=== PATIENT | female | born 1985 | race Caucasian/White ===

== ENCOUNTER 2017-02-06 07:21 | Emergency (ER) | payer SELFPAY ==
[~2017-02-06] VITALS: Ht 160 cm; Wt 59.0 kg
[~2017-02-06 07:21] MED LIST: CEPH500 PO; NAPR500 PO
[2017-02-06 07:24] VITALS: BP 141/90; PULSE 105; RESP 15; TEMP 98.2; O2SAT 99
[2017-02-06 08:38] LABS: BACTERIA, URINE OCC /hpf; BLOOD, URINE LARGE (NEG); GLUCOSE,URINE NEG (NEG); KETONE, URINE 40 mg/dL (NEG); MUCUS URINE FEW /lpf (OCC); NITRITE,URINE NEG (NEG); SQUAMOUS EPITHELIAL CELL URINE 9 /hpf (0-5); TRANSITIONAL EPI CELLS, URINE <1 /hpf; URINE COLOR YELLOW (YELLW/STRAW)
[2017-02-06 08:40] LABS: COMMENT (UR) CULT NOT INDICATED; CULTURE IF INDICATED CULT NOT INDICATED
[2017-02-06 09:05] VITALS: BP 168/88; PULSE 94; RESP 18; TEMP 98.1; O2SAT 99
[2017-02-06] MEDS ORDERED: SODIUM CHLOR 0.9% 1000 ML INJ 1,000 ML IV ONE (09:15)
[2017-02-06] MEDS ORDERED: ONDANSETRON HCL 4 MG/2 ML VIAL IVP ONE ×2 (09:15→11:45)
[2017-02-06] MEDS ORDERED: KETOROLAC TROMETHAMINE 30 MG/ML (IVP) VIAL IVP ONE (09:15)
--- NOTE | 2017-02-06 09:31 | PD ---
HPI Chief Complaint: Skin Problem Time Seen by Provider: 09:09 Travel History International Travel<30 days: No Contact w/Intl Traveler<30days: No Traveled to known affect area: No History of Present Illness HPI This is a 31-year-old female with history of polycystic ovarian disease, kidney stones, who presents today with complaints of right flank pain with radiation to her right lower quadrant. The patient states the pain feels like it did when she had a previous kidney stone. She states that she's been feeling hot and cold. She also reports severe nausea and vomiting. There is no upper respiratory symptoms. There are no ill contacts. There is no diarrhea. She also has a skin rash to her chin and back. She states that she's had MRSA rashes in the past before. She is concerned this may be MRSA. [facility] Past Medical History Immunizations Current: Yes ?: Not Past Surgical History Gynecologic Surgery: Yes (HYSTERECTOMY) Hysterectomy: Yes Social History Alcohol Use: No Tobacco Use: No Substance Use: No Allergies-Medications (Allergen,Severity, Reaction): Coded Allergies: Amoxicillin (Verified Allergy, Unknown, HIVES, 05/08/15) Haldol (Verified Allergy, Unknown, 02/06/17) Levaquin (Verified Allergy, Unknown, HIVES, 05/08/15) Phenergan (Verified Allergy, Unknown, HIVES, 05/08/15) Reglan (Verified Allergy, Unknown, HIVES, 05/08/15) Robaxin (Verified Allergy, Unknown, HIVES, 05/08/15) Toradol (Verified Allergy, Unknown, 02/06/17) Reported Meds & Prescriptions Reported Meds & Active Scripts Active Lortab (Hydrocodone-Acetaminophen) 5-325 Mg Tab 1 Tab PO Q6H PRN Flomax (Tamsulosin HCl) 0.4 Mg Cap 0.4 Mg PO HS Naprosyn (Naproxen) 500 Mg Tab 500 Mg PO BID PRN Keflex 500 mg Cap (Cephalexin Monohydrate) 500 Mg Cap 500 Mg PO TID 7 Days Review of Systems Except as stated in HPI: all other systems reviewed are Neg General / Constitutional: Positive: Fever, No: Chills (subjective) HENT: No: Headaches, Lightheadedness Cardiovascular: No: Chest Pain or Discomfort, Palpitations Respiratory: No: Cough, Shortness of Breath Gastrointestinal: Positive: Nausea, Vomiting, Abdominal Pain (8 flank to right lower abdominal) Genitourinary: Positive: Dysuria, Hematuria, Other (status post hysterectomy), No: Pelvic Pain, Vaginal Bleeding Musculoskeletal: Positive: Pain (right flank), No: Weakness Neurologic: No: Weakness, Dizziness, Headache Physical Exam Narrative GENERAL: Developed well-nourished female in no acute respiratory distress. SKIN: Focused skin assessment warm/dry. She is warm to touch however temperature is normal. HEAD: Atraumatic. Normocephalic. EYES: No scleral icterus. No injection or drainage. ENT: No nasal bleeding or discharge. Mucous membranes pink and moist. On examination of the patient's chin, there is a erythematous rash with no obvious drainage to her face. It does appear excoriated. NECK: Trachea midline. No JVD. CARDIOVASCULAR: Regular rate and rhythm. No murmur appreciated. RESPIRATORY: No accessory muscle use. Clear to auscultation. Breath sounds equal bilaterally. GASTROINTESTINAL: Abdomen soft, non-tender, nondistended. No rebound or guarding. Patient reports discomfort in her suprapubic area however this was not reproduced on exam. MUSCULOSKELETAL: No obvious deformities. No clubbing. No cyanosis. No edema. NEUROLOGICAL: Awake and alert. No obvious cranial nerve deficits. Motor grossly within normal limits. Normal speech. BACK: Subjective tenderness in the right CVA area. There are several areas on her back that are excoriated that appear red and erythematous. Patient states that she's had MRSA in the past and feels as though this may be this. Data Data Last Documented VS Vital Signs Date Time Temp Pulse Resp B/P Pulse Ox O2 Delivery O2 Flow Rate FiO2 02/06/17 12:19 73 18 136/71 99 Room Air 02/06/17 09:05 98.1 Orders Urinalysis - C+S If Indicated (02/06/17 07:34) Complete Blood Count With Diff (02/06/17 09:10) Comprehensive Metabolic Panel (02/06/17 09:10) Ketorolac Inj (Toradol Inj) (02/06/17 09:15) Ondansetron Inj (Zofran Inj) (02/06/17 09:15) Sodium Chlor 0.9% 1000 Ml Inj (Ns 1000 M (02/06/17 09:15) Ct Abd/Pel W/O Iv Contrast (02/06/17 09:13) Hydromorphone Pf Inj (Dilaudid Pf Inj) (02/06/17 10:00) Lorazepam Inj (Ativan Inj) (02/06/17 10:00) Hydromorphone Pf Inj (Dilaudid Pf Inj) (02/06/17 11:45) Drug Screen, Random Urine (02/06/17 11:44) Ondansetron Inj (Zofran Inj) (02/06/17 11:45) Labs Laboratory Tests Test 02/06/17 02/06/17 02/06/17 07:45 09:45 10:20 Urine Color YELLOW Urine Turbidity HAZY Urine pH 6.0 Urine Specific [place] 1.040 Urine Protein 30 mg/dL Urine Glucose (UA) NEG mg/dL Urine Ketones 40 mg/dL Urine Occult Blood LARGE Urine Nitrite NEG Urine Bilirubin NEG Urine Urobilinogen 2.0 MG/DL Urine Leukocyte Esterase NEG Urine RBC /hpf Urine WBC 1 /hpf Urine Squamous Epithelial 9 /hpf Cells Urine Transitional Epithelial <1 /hpf Cells Urine Bacteria OCC /hpf Urine Mucus FEW /lpf Microscopic Urinalysis Comment CULT NOT INDICATED Urine Opiates Screen POS Urine Barbiturates Screen NEG Urine Amphetamines Screen NEG Urine Benzodiazepines Screen NEG Urine Cocaine Screen NEG Urine Cannabinoids Screen NEG Sodium Level 137 MEQ/L Potassium Level 3.9 MEQ/L Chloride Level 108 MEQ/L Carbon Dioxide Level 18.7 MEQ/L Anion Gap 10 MEQ/L Blood Urea Nitrogen 12 MG/DL Creatinine 0.47 MG/DL Estimat Glomerular Filtration 156 ML/MIN Rate Random Glucose 100 MG/DL Calcium Level 9.2 MG/DL Total Bilirubin 0.5 MG/DL Aspartate Amino Transf 18 U/L (AST/SGOT) Alanine Aminotransferase 17 U/L (ALT/SGPT) Alkaline Phosphatase 62 U/L Total Protein 7.9 GM/DL Albumin 4.1 GM/DL White Blood Count 7.2 TH/MM3 Red Blood Count 4.21 MIL/MM3 Hemoglobin 12.0 GM/DL Hematocrit 33.9 % Mean Corpuscular Volume 80.6 FL Mean Corpuscular Hemoglobin 28.4 PG Mean Corpuscular Hemoglobin 35.2 % Concent Red Cell Distribution Width 15.5 % Platelet Count 297 TH/MM3 Mean Platelet Volume 8.0 FL Neutrophils (%) (Auto) 81.3 % Lymphocytes (%) (Auto) 14.6 % Monocytes (%) (Auto) 3.5 % Eosinophils (%) (Auto) 0.1 % Basophils (%) (Auto) 0.5 % Neutrophils # (Auto) 5.8 TH/MM3 Lymphocytes # (Auto) 1.0 TH/MM3 Monocytes # (Auto) 0.2 TH/MM3 Eosinophils # (Auto) 0.0 TH/MM3 Basophils # (Auto) 0.0 TH/MM3 CBC Comment DIFF FINAL Differential Comment MDM Medical Decision Making Medical Screen Exam Complete: Yes Emergency Medical Condition: Yes Differential Diagnosis Nephritis versus renal calculus versus musculoskeletal pain versus polycystic ovarian exacerbation. Narrative Course 31-year-old female history of polycystic ovarian disease, renal coccus, presents with right flank pain with radiation to her groin. Patient also has hematuria. Urinalysis showed hematuria without infection. White count was normal. The patient does have a 2 mm stone at the right UPJ. The patient's been given 2 doses of IVD narcotics. She was given a dose of Toradol but then said that she can't take Toradol because it makes her anxious. She's been given 2 doses of Zofran. She is also given 1 L of IVD fluid. She'll be discharged with a prescription for Lortab total #15. Also Flomax total number of 10. She is also been given a prescription for Bactrim for her skin lesions as they are possibly MRSA related since she states she's been told in the past and that's what she has. She is instructed to follow up with her primary care doctor, Dr. Garcia if the rash does not improve. Diagnosis Primary Impression: Renal colic on right side Additional Impression: face and skin rash/lesion with history of MRSA skin infection Patient Instructions: Narcotic given in the ED Additional Instructions: If rash on face and back does not improve, follow up with her primary care physician. Return of worsening pain, fevers chills, or any other reason that concerned her. Med/Other Pt SpecificInfo: Prescription(s) given Scripts Ondansetron Odt (Zofran Odt)4 Mg Tab4 Mg SL Q8HR PRN (Nausea/Vomiting) #30 TAB Ref 0 Prov:Lucas Mckeon MD 02/06/17 Sulfamethoxazole-Trimethoprim (Bactrim DS)800-160 Mg Tab1 Tab PO BID #20 TAB Ref 0 Prov:Lucas Mckeon MD 02/06/17 Hydrocodone-Acetaminophen (Lortab)5-325 Mg Tab1 Tab PO Q6H PRN (PAIN) #15 TAB Ref 0 Prov:Lucas Mckeon MD 02/06/17 Tamsulosin (Flomax)0.4 Mg Cap0.4 Mg PO HS #10 CAP Ref 0 Prov:Lucas Mckeon MD 02/06/17 Disposition: 01 DISCHARGE HOME Condition: Stable Lucas Mckeon MD Feb 06, 2017 09:31
[2017-02-06] MEDS ORDERED: HYDROmorphone HCL PF 1 MG/ML VIAL IVS ONE ×2 (10:00→11:45)
[2017-02-06] MEDS ORDERED: LORazepam 2 MG/ML VIAL IV PUSH ONE (10:00)
[2017-02-06 10:05] VITALS: BP 154/79; PULSE 98; RESP 18; O2SAT 100
[2017-02-06 10:50] LABS: ALKALINE PHOSPHATASE 62 U/L (45-117); ALT (GPT) 17 U/L (10-53); ANION GAP 10 MEQ/L (5-15); AST (GOT) 18 U/L (15-37); BICARBONATE 18.7 MEQ/L (21.0-32.0); BLOOD UREA NITROGEN 12 MG/DL (7-18); CHLORIDE 108 MEQ/L (98-107); GLOMERULAR FILTRATION RATE 156 ML/MIN (>89); POTASSIUM 3.9 MEQ/L (3.5-5.1); SODIUM (NA) 137 MEQ/L (136-145); TOTAL BILIRUBIN ADULT 0.5 MG/DL (0.2-1.0)
[2017-02-06 10:51] LABS: AUTOMATED NEUTROPHIL # 5.8 TH/MM3 (1.8-7.7); BASOPHIL % 0.5 % (0.0-2.0); EOSINOPHIL % 0.1 % (0.0-4.0); HEMATOCRIT 33.9 % (35.0-46.0); HEMO FLAGS DIFF FINAL; LYMPH % 14.6 % (9.0-44.0); MEAN CELL VOLUME 80.6 FL (80.0-100.0); MEAN CORPUSCULAR HEMOGLOBIN 28.4 PG (27.0-34.0); MEAN CORPUSCULAR HGB CONC 35.2 % (32.0-36.0); MONO % 3.5 % (0.0-8.0); NEUT % 81.3 % (16.0-70.0); PLATELET COUNT 297 TH/MM3 (150-450); RED BLOOD COUNT 4.21 MIL/MM3 (4.00-5.30); RED CELL DISTRIBUTION WIDTH 15.5 % (11.6-17.2); WHITE BLOOD COUNT 7.2 TH/MM3 (4.0-11.0)
--- NOTE | 2017-02-06 11:27 | RADRPT ---
EXAM DATE/TIME: 02/06/2017 10:36 [place] COMPARISON: No previous studies available for comparison. INDICATIONS : Right flank pain, hematuria for three days. ORAL CONTRAST: No oral contrast ingested. RADIATION DOSE: 13.28 CTDIvol (mGy) MEDICAL HISTORY : Polycystic ovarian disease, endometreosis. SURGICAL HISTORY : Hysterectomy. ENCOUNTER: Initial ACUITY: 3 days PAIN SCALE: 6/10 LOCATION: Right flank TECHNIQUE: Volumetric scanning of the abdomen and pelvis was performed. Using automated exposure control and ad justment of the mA and/or kV according to patient size, radiation dose was kept as low as reasonably achievable to obtain optimal diagnostic quality images. FINDINGS: LOWER LUNGS: The visualized lower lungs are clear. LIVER: Homogeneous density without lesion for noncontrast technique. There is no dilation of the biliary tr ee. In the posterior port from prior cholecystectomy.. SPLEEN: Normal size without lesion. PANCREAS: Within normal limits. KIDNEYS: The kidneys are symmetric in size. No calcified stones on either side. No evidence hydronephrosis i n either side. Both ureters are normal dimension. There is a solitary 2 mm calcification seen near the ureteral vesical junction on the right side, best seen on image #134. ADRENAL GLANDS: Within normal limits. VASCULAR: There is no aortic aneurysm. BOWEL/MESENTERY: The stomach, small bowel, and colon demonstrate no acute abnormality. There is no free intraperitone al air or fluid. ABDOMINAL WALL: Within normal limits. RETROPERITONEUM: There is no lymphadenopathy. BLADDER: No wall thickening or mass. No calcifications within the lumen. REPRODUCTIVE: Within normal limits. INGUINAL: There is no lymphadenopathy or hernia. MUSCULOSKELETAL: Within normal limits for patient age. CONCLUSION: 1. There is a 2 mm calcified stone near the right ureteral vesicle junction in the distal right urete r. 2. No evidence of hydronephrosis on either side and no collecting system calcifications in either kid segre. Lalo English MD on February 06, 2017 at 11:19 Board Certified Radiologist. This report was verified electronically.
[2017-02-06 12:19] VITALS: BP 136/71; PULSE 73; RESP 18; O2SAT 99
[2017-02-06 12:40] LABS: AMPHETAMINE, URINE NEG (NEG); BARBITURATES, URINE NEG (NEG); COCAINE, URINE NEG (NEG)
[2017-02-06] MEDS ORDERED: TAMS5CAP PO (12:55)
[2017-02-06] MEDS ORDERED: HYDR-3533 PO (12:55)
[2017-02-06] MEDS ORDERED: ZOFR4TAB3 SL (13:05)
[2017-02-06] MEDS ORDERED: BACT800T5 PO (13:05)
[2017-02-06] MEDS ORDERED: ONDANSETRON ODT 4 MG TAB PO ONE (13:15)
== END 2017-02-06 13:53 | disposition home or self-care (01) ==
LOC: NEPC 07:21
DX: N23 Unspecified renal colic (principal); R21 Rash and other nonspecific skin eruption; R31.9 Hematuria, unspecified; E28.2 Polycystic ovarian syndrome; Z86.14 Personal history of Methicillin resistant Staphylococcus aureus infection; Z87.442 Personal history of urinary calculi
CPT/HCPCS: 74176; 80053; 80307; 81001; 85025; 96374; 96375; 96376; 99284; J1170; J1885; J2060; J2405; J7030

== ENCOUNTER 2017-02-06 21:52 | Observation (INO) | payer SELFPAY ==
[~2017-02-06] VITALS: Ht 160 cm; Wt 59.0 kg
[~2017-02-06 21:52] MED LIST changes: +BACT800T5 PO; +HYDR-3533 PO; +TAMS5CAP PO; +ZOFR4TAB3 SL
[2017-02-06 21:53] VITALS: BP 166/100; PULSE 112; RESP 12; TEMP 98.1; O2SAT 99
[2017-02-06] MEDS ORDERED: MORPHINE SULFATE 4 MG/ML INJ IV PUSH ONE (23:00)
[2017-02-06] MEDS ORDERED: ONDANSETRON HCL 4 MG/2 ML VIAL IVP ONE (23:00)
[2017-02-06] MEDS ORDERED: SODIUM CHLOR 0.9% 1000 ML INJ 1,000 ML IV SCH (23:00)
[2017-02-06] MEDS ORDERED: SODIUM CHLORIDE 0.9% FLUSH 10 ML FLUSH IV FLUSH PRN (23:00)
--- NOTE | 2017-02-06 23:23 | PD ---
HPI Chief Complaint: Complaint Time Seen by Provider: 22:59 Travel History International Travel<30 days: No Contact w/Intl Traveler<30days: No Traveled to known affect area: No History of Present Illness HPI 31-year-old female who was seen in the emergency department earlier today and diagnosed with a right-sided kidney stone, back for evaluation of intractable pain, nausea, and vomiting. Patient reports severe sharp right flank pain that radiates to her right lower abdomen. She isn't able to keep her medications down. Chart review shows that she had a CT abdomen pelvis performed earlier today that shows a 2 mm calcified stone near the right UVJ in the distal right ureter without evidence of hydronephrosis. UA showed large occult blood, not suggestive of UTI. PFSH Past Medical History Genitourinary: Yes (polycystic disease) Medical other: Yes (kidney stones) Immunizations Current: Yes ?: Not Past Surgical History Gynecologic Surgery: Yes (HYSTERECTOMY) Hysterectomy: Yes Social History Alcohol Use: No Tobacco Use: No Substance Use: No Allergies-Medications (Allergen,Severity, Reaction): Coded Allergies: Amoxicillin (Verified Allergy, Unknown, HIVES, 05/08/15) Haldol (Verified Allergy, Unknown, 02/06/17) Levaquin (Verified Allergy, Unknown, HIVES, 05/08/15) Phenergan (Verified Allergy, Unknown, HIVES, 05/08/15) Reglan (Verified Allergy, Unknown, HIVES, 05/08/15) Robaxin (Verified Allergy, Unknown, HIVES, 05/08/15) Toradol (Verified Allergy, Unknown, 02/06/17) Reported Meds & Prescriptions Reported Meds & Active Scripts Active Zofran Odt (Ondansetron Odt) 4 Mg Tab 4 Mg SL Q8HR PRN Bactrim DS (Sulfamethoxazole-Trimethoprim) 800-160 Mg Tab 1 Tab PO BID Lortab (Hydrocodone-Acetaminophen) 5-325 Mg Tab 1 Tab PO Q6H PRN Flomax (Tamsulosin HCl) 0.4 Mg Cap 0.4 Mg PO HS Review of Systems Except as stated in HPI: all other systems reviewed are Neg Physical Exam Narrative GENERAL: Well-developed, well-nourished, in position, crying, dry heaving into an emesis bag SKIN: Focused skin assessment warm/dry. HEAD: Atraumatic. Normocephalic. EYES: Pupils equal and round. No scleral icterus. No injection or drainage. ENT: Mucous membranes pink and moist. NECK: Trachea midline. No JVD. CARDIOVASCULAR: Regular rate and rhythm. RESPIRATORY: No accessory muscle use. Clear to auscultation. Breath sounds equal bilaterally. GASTROINTESTINAL: Abdomen soft, non-tender, nondistended. MUSCULOSKELETAL: No obvious deformities. No clubbing. No cyanosis. No edema. Moderate right CVA tenderness. No left CVA tenderness. NEUROLOGICAL: Awake and alert. No obvious cranial nerve deficits. Motor grossly within normal limits. Normal speech. PSYCHIATRIC: Appropriate mood and affect; insight and judgment normal. Data Data Last Documented VS Vital Signs Date Time Temp Pulse Resp B/P Pulse Ox O2 Delivery O2 Flow Rate FiO2 02/06/17 23:48 18 98 Room Air 02/06/17 21:53 98.1 112 166/100 Orders Complete Blood Count With Diff (02/06/17 23:00) Comprehensive Metabolic Panel (02/06/17 23:00) Urinalysis - C+S If Indicated (02/06/17 23:00) Iv Access Insert/Monitor (02/06/17 23:00) Ecg Monitoring (02/06/17 23:00) Oximetry (02/06/17 23:00) Morphine Inj (Morphine Inj) (02/06/17 23:00) Ondansetron Inj (Zofran Inj) (02/06/17 23:00) Sodium Chlor 0.9% 1000 Ml Inj (Ns 1000 M (02/06/17 23:00) Sodium Chloride 0.9% Flush (Ns Flush) (02/06/17 23:00) Hydromorphone Pf Inj (Dilaudid Pf Inj) (02/07/17 00:30) Ibuprofen (Motrin) (02/07/17 00:30) Urine Culture (02/07/17 00:11) Ceftriaxone Inj (Rocephin Inj) (02/07/17 00:30) Labs Laboratory Tests Test 02/06/17 02/07/17 23:19 00:11 White Blood Count 11.3 TH/MM3 Red Blood Count 4.41 MIL/MM3 Hemoglobin 12.1 GM/DL Hematocrit 36.0 % Mean Corpuscular Volume 81.6 FL Mean Corpuscular Hemoglobin 27.4 PG Mean Corpuscular Hemoglobin 33.6 % Concent Red Cell Distribution Width 15.6 % Platelet Count 340 TH/MM3 Mean Platelet Volume 7.9 FL Neutrophils (%) (Auto) 78.1 % Lymphocytes (%) (Auto) 15.4 % Monocytes (%) (Auto) 6.0 % Eosinophils (%) (Auto) 0.1 % Basophils (%) (Auto) 0.4 % Neutrophils # (Auto) 8.8 TH/MM3 Lymphocytes # (Auto) 1.7 TH/MM3 Monocytes # (Auto) 0.7 TH/MM3 Eosinophils # (Auto) 0.0 TH/MM3 Basophils # (Auto) 0.0 TH/MM3 CBC Comment DIFF FINAL Differential Comment Sodium Level 137 MEQ/L Potassium Level 4.4 MEQ/L Chloride Level 106 MEQ/L Carbon Dioxide Level 23.7 MEQ/L Anion Gap 7 MEQ/L Blood Urea Nitrogen 11 MG/DL Creatinine 0.66 MG/DL Estimat Glomerular Filtration 105 ML/MIN Rate Random Glucose 94 MG/DL Calcium Level 9.0 MG/DL Total Bilirubin 0.4 MG/DL Aspartate Amino Transf 39 U/L (AST/SGOT) Alanine Aminotransferase 19 U/L (ALT/SGPT) Alkaline Phosphatase 62 U/L Total Protein 8.3 GM/DL Albumin 4.2 GM/DL Urine Color YELLOW Urine Turbidity CLOUDY Urine pH 6.0 Urine Specific [place] 1.020 Urine Protein 30 mg/dL Urine Glucose (UA) NEG mg/dL Urine Ketones NEG mg/dL Urine Occult Blood LARGE Urine Nitrite NEG Urine Bilirubin NEG Urine Urobilinogen LESS THAN 2.0 MG/DL Urine Leukocyte Esterase MOD Urine RBC /hpf Urine WBC 18 /hpf Urine Squamous Epithelial 43 /hpf Cells Urine Bacteria MOD /hpf Urine Mucus MANY /lpf Microscopic Urinalysis Comment CULTURE INDICATED MDM Medical Decision Making Medical Screen Exam Complete: Yes Emergency Medical Condition: Yes Differential Diagnosis Ureterolithiasis, dehydration, intractable pain, intractable nausea and vomiting Narrative Course Vital signs reviewed. Initial tachycardia is because the patient is in distress secondary to pain. CBC shows WBC 11.3, hemoglobin 12.1, hematocrit 36, platelets 340, neutrophils 78%. CMP is unremarkable. UA shows cloudy urine, 30 protein, large occult blood, moderate leukocyte esterase, innumerable rbc's, 18 WBCs, moderate bacteria. The patient will be started on Rocephin. The patient was given a dose of morphine followed by dose of Dilaudid and is still complaining of pain. She was also given oral Motrin. Given intractable right flank pain secondary to kidney stone, the patient will be admitted for overnight observation for pain control. The patient's primary care physician is Dr. Chris Garcia. Case discussed with [facility] hospitalist JOHAN Dupree. The patient will be admitted to their service under Dr. Lopez. Diagnosis Primary Impression: Renal colic on right side Additional Impression: Intractable pain Admitting Information Admitting Physician Requests: Observation Ander Infante MD Feb 06, 2017 23:23
[2017-02-06 23:32] LABS: AUTOMATED NEUTROPHIL # 8.8 TH/MM3 (1.8-7.7); BASOPHIL % 0.4 % (0.0-2.0); EOSINOPHIL % 0.1 % (0.0-4.0); HEMO FLAGS DIFF FINAL; LYMPH % 15.4 % (9.0-44.0); LYMPHOCYTE # 1.7 TH/MM3 (1.0-4.8); MEAN CELL VOLUME 81.6 FL (80.0-100.0); MEAN CORPUSCULAR HEMOGLOBIN 27.4 PG (27.0-34.0); MEAN CORPUSCULAR HGB CONC 33.6 % (32.0-36.0); NEUT % 78.1 % (16.0-70.0); PLATELET COUNT 340 TH/MM3 (150-450); RED BLOOD COUNT 4.41 MIL/MM3 (4.00-5.30); RED CELL DISTRIBUTION WIDTH 15.6 % (11.6-17.2); WHITE BLOOD COUNT 11.3 TH/MM3 (4.0-11.0)
[2017-02-06 23:48] VITALS: RESP 18; O2SAT 98
[2017-02-07] VITALS (7 sets, daily range): BP systolic 132–163; BP diastolic 76–98; PULSE 61–92; RESP 16–20; TEMP 96.6–98; O2SAT 97–100
[2017-02-07 00:12] LABS: ALKALINE PHOSPHATASE 62 U/L (45-117); ALT (GPT) 19 U/L (10-53); ANION GAP 7 MEQ/L (5-15); AST (GOT) 39 U/L (15-37); BICARBONATE 23.7 MEQ/L (21.0-32.0); BLOOD UREA NITROGEN 11 MG/DL (7-18); CHLORIDE 106 MEQ/L (98-107); GLOMERULAR FILTRATION RATE 105 ML/MIN (>89); POTASSIUM 4.4 MEQ/L (3.5-5.1); SODIUM (NA) 137 MEQ/L (136-145); TOTAL BILIRUBIN ADULT 0.4 MG/DL (0.2-1.0)
[2017-02-07 00:23] LABS: BACTERIA, URINE MOD /hpf; BLOOD, URINE LARGE (NEG); COMMENT (UR) CULTURE INDICATED; CULTURE IF INDICATED CULTURE INDICATED; GLUCOSE,URINE NEG (NEG); KETONE, URINE NEG (NEG); MUCUS URINE MANY /lpf (OCC); NITRITE,URINE NEG (NEG); SQUAMOUS EPITHELIAL CELL URINE 43 /hpf (0-5); URINE COLOR YELLOW (YELLW/STRAW)
[2017-02-07] MEDS ORDERED: IBUPROFEN 600 MG TAB PO ONE (00:30)
[2017-02-07] MEDS ORDERED: HYDROmorphone HCL PF 1 MG/ML VIAL IV PUSH ONE (00:30)
[2017-02-07] MEDS ORDERED: cefTRIAXone INJ 1,000 MG in SODIUM CHLORIDE 0.9% INJ 100 ML IV ONE (00:30)
[2017-02-07] MEDS ORDERED: SODIUM CHLORIDE 0.9% FLUSH 10 ML FLUSH IV FLUSH PRN (02:15)
[2017-02-07] MEDS ORDERED: SENNOSIDES 8.6 MG TAB PO PRN (02:15)
[2017-02-07] MEDS ORDERED: NALOXONE HCL 0.4 MG/ML AMP IV PRN (02:15)
[2017-02-07] MEDS ORDERED: ACETAMINOPHEN 325 MG TAB PO PRN (02:15)
[2017-02-07] MEDS ORDERED: MORPHINE SULFATE 4 MG/ML INJ IV PRN (02:15)
[2017-02-07] MEDS: SODIUM CHLOR 0.9% 1000 ML INJ 1,000 ML IV SCH ×3 (03:15→20:57)
[2017-02-07] MEDS: MORPHINE SULFATE 4 MG/ML INJ IV PRN ×2 (03:16→05:58)
[2017-02-07] MEDS: ONDANSETRON HCL 4 MG/2 ML VIAL IVP PRN ×3 (05:58→18:48)
--- NOTE | 2017-02-07 07:26 | HHI.HP ---
HPI Service [facility] Hospitalists Primary Care Physician Chris Garcia MD Admission Diagnosis renal colic, intractable right flank pain Diagnoses: Chief Complaint: Right flank pain (Leandra Franklin) Travel History International Travel<30 Days: No Contact w/Intl Traveler <30 Da: No Traveled to Known Affected Are: No (Leandra Franklin) History of Present Illness This is a 31-year-old female with history of polycystic ovarian syndrome, kidney stones. Patient presented to the emergency room with right-sided flank pain associated with nausea vomiting. Has not been able to eat anything for the last 2 days. Complaining of pelvic pressure, no dye Patel, no hematuria. Has had chills but no fevers. She actually presented to the emergency room yesterday morning and had a CT that showed 2 mm calcified stone near the right ureterovesical junction in the distal right ureter, no evidence of hydronephrosis on either side and no collecting system calcifications in either kidney. She also complained of a rash to her face and her back and buttock, states that she has prior history of MRSA infections. She was discharged home on Bactrim, Flomax and narcotics. Patient returned later in the day yesterday as she couldn't keep anything down and her medications were not controlling her pain. Urinalysis was completed, positive for bacteriuria and leukocyte esterase. Patient was given IV fluids, Dilaudid and Rocephin. At this time, patient is crying, indicates the morphine is not helping and is requesting Dilaudid. She endorses prior history of kidney [place], was supposed to follow-up with the urologist but never did. The last time she had kidney stones was 3 years ago and at that time she was able to pass it. Patient is admitted for further evaluation and treatment. (eLandra Franklin) Review of Systems Constitutional: COMPLAINS OF: Chills, Change in appetite, DENIES: Diaphoretic episodes, Fatigue, Fever, Weight gain, Weight loss, Dizziness, Night Sweats Endocrine: DENIES: Abnorml menstrual pattern, Heat/cold intolerance, Polydipsia , Polyuria, Polyphagia Eyes: DENIES: Blurred vision, Diplopia, Eye inflammation, Eye pain, Vision loss , Photosensitivity, Double Vision Ears, nose, mouth, throat: DENIES: Tinnitus, Hearing loss, Vertigo, Nasal discharge, Oral lesions, Throat pain, Hoarseness, Ear Pain, Running Nose, Epistaxis, Sinus Pain, Toothache, Odynophagia Respiratory: DENIES: Apneas, Cough, Snoring, Wheezing, Hemoptysis, Sputum production, Shortness of breath Cardiovascular: DENIES: Chest pain, Palpitations, Syncope, Dyspnea on Exertion , PND, Lower Extremity Edema, Orthopnea, Claudication Gastrointestinal: COMPLAINS OF: Abdominal pain (right flank pain), Nausea, Vomiting, DENIES: Black stools, Bloody stools, Constipation, Diarrhea, Difficulty Swallowing, Anorexia Genitourinary: DENIES: Abnormal vaginal bleeding, Dysmenorrhea, Dyspareunia, Sexual dysfunction, Urinary frequency, Urinary incontinence, Urgency, Hematuria , Dysuria, Nocturia, Vaginal discharge Musculoskeletal: DENIES: Joint pain, Muscle aches, Stiffness, Joint Swelling, Back pain, Neck pain Integumentary: DENIES: Abnormal pigmentation, Pruritus, Rash, Nail changes, Breast masses, Breast skin changes, Nipple discharge Hematologic/lymphatic: DENIES: Bruising, Lymphadenopathy Immunologic/allergic: DENIES: Eczema, Urticaria Neurologic: DENIES: Abnormal gait, Headache, Localized weakness, Paresthesias, Seizures, Speech Problems, Tremor, Poor Balance Psychiatric: DENIES: Anxiety, Confusion, Mood changes, Depression, Hallucinations, Agitation, Suicidal Ideation, Homicidal Ideation, Delusions ( Leandra Franklin) Past Family Social History Past Medical History Polycystic kidney disease Kidney stones Endometriosis Hx MRSA skin infections Past Surgical History Cholecystectomy Several gynecological procedures for endometriosis Hysterectomy Reported Medications Reported Meds & Active Scripts Active Zofran Odt (Ondansetron Odt) 4 Mg Tab 4 Mg SL Q8HR PRN Bactrim DS (Sulfamethoxazole-Trimethoprim) 800-160 Mg Tab 1 Tab PO BID Lortab (Hydrocodone-Acetaminophen) 5-325 Mg Tab 1 Tab PO Q6H PRN Flomax (Tamsulosin HCl) 0.4 Mg Cap 0.4 Mg PO HS (Leandra Franklin) Allergies: Coded Allergies: Amoxicillin (Verified Allergy, Unknown, HIVES, 05/08/15) Haldol (Verified Allergy, Unknown, 02/06/17) Levaquin (Verified Allergy, Unknown, HIVES, 7/6/15) Phenergan (Verified Allergy, Unknown, HIVES, 05/08/15) Reglan (Verified Allergy, Unknown, HIVES, 05/08/15) Robaxin (Verified Allergy, Unknown, HIVES, 05/08/15) Toradol (Verified Allergy, Unknown, 02/06/17) Active Ordered Medications Inpatient Medications Acetaminophen (Tylenol) 650 mg Q4H PRN PO TEMP > 100.4; Start 02/07/17 at 02:15 Ceftriaxone Sodium 1000 mg/ Sodium Chloride 100 ml @ 200 mls/hr ONCE ONCE IV Last administered on 02/07/17 00:44; Start 02/07/17 at 00:30; Stop 02/07/17 at 00: 59; Status DC Ceftriaxone Sodium/Sodium Chloride (Rocephin Inj/NS Inj) 100 ml @ 200 mls/hr Q24H IV ; Start 02/07/17 at 23:00; Status UNV Hydromorphone HCl (Dilaudid Pf Inj) 1 mg ONCE ONCE IV PUSH Last administered on 02/07/17 00:44; Start 02/07/17 at 00:30; Stop 02/07/17 at 00:31; Status DC Ibuprofen 600 mg 600 mg ONCE ONCE PO ; Start 02/07/17 at 00:30; Stop 02/07/17 at 00:31; Status DC Morphine Sulfate (Morphine Inj) 4 mg Q3H PRN IV Pain 6-10;if unable to take PO Last administered on 02/07/17 05:58; Start 02/07/17 at 02:15 Naloxone HCl 0.4 mg 0.4 mg UNSCH PRN IV SEE LABEL COMMENTS; Start 02/07/17 at 02 :15 Ondansetron HCl (Zofran Inj) 4 mg Q6H PRN IVP NAUSEA OR VOMITING Last administered on 02/07/17 05:58; Start 02/07/17 at 02:15 Sennosides (Senokot) 17.2 mg Q12H PRN PO FLUSH AFTER USING IV ACCESS; Start 02/07/17 at 02:15 Sodium Chloride (NS 1000 ml Inj) 1,000 ml @ 100 mls/hr Q10H IV Last administered on 02/07/17 03:15; Start 02/07/17 at 02:11 Sodium Chloride (NS Flush) 2 ml BID IV FLUSH ; Start 02/07/17 at 09:00 Family History Positive for coronary artery disease, diabetes, lupus. Both mother and father alive and well. She has 2 siblings. Social History Patient is , has 1 child. No smoking, no tobacco abuse, no substance abuse. (Leandra Franklin) Physical Exam Vital Signs Vital Signs Date Time Temp Pulse Resp B/P Pulse Ox O2 Delivery O2 Flow Rate FiO2 02/07/17 04:06 70 18 132/79 97 Room Air 02/07/17 03:30 17 02/07/17 01:19 92 16 151/90 97 Room Air 02/07/17 01:19 17 02/07/17 00:47 89 18 151/93 98 Room Air 02/06/17 23:50 17 02/06/17 23:48 18 98 Room Air 02/06/17 21:53 98.1 112 12 166/100 99 Room Air Physical Exam GENERAL: This is a well-nourished, well-developed patient, crying, anxious. SKIN: on patient's chin, there is a erythematous rash with no obvious drainage. Another 2 cm lesion noted to back and buttocks. HEAD: Atraumatic. Normocephalic. No temporal or scalp tenderness. EYES: Pupils equal round and reactive. Extraocular motions intact. No scleral icterus. No injection or drainage. ENT: Nose without bleeding, purulent drainage or septal hematoma. Throat without erythema, tonsillar hypertrophy or exudate. Uvula midline. Airway patent. NECK: Trachea midline. No JVD or lymphadenopathy. Supple, nontender, no meningeal signs. CARDIOVASCULAR: Regular rate and rhythm without murmurs, gallops, or rubs. RESPIRATORY: Clear to auscultation. Breath sounds equal bilaterally. No wheezes , rales, or rhonchi. GASTROINTESTINAL: Right flank pain, soft, non-tender, nondistended. No hepato- splenomegaly, or palpable masses. No guarding. MUSCULOSKELETAL: Extremities without clubbing, cyanosis, or edema. No joint tenderness, effusion, or edema noted. No calf tenderness. Negative Homans sign bilaterally. NEUROLOGICAL: Awake and alert. Cranial nerves II through XII intact. Motor and sensory grossly within normal limits. Five out of 5 muscle strength in all muscle groups. Normal speech. Laboratory Laboratory Tests Test 02/06/17 02/07/17 23:19 00:11 White Blood Count 11.3 Red Blood Count 4.41 Hemoglobin 12.1 Hematocrit 36.0 Mean Corpuscular Volume 81.6 Mean Corpuscular Hemoglobin 27.4 Mean Corpuscular Hemoglobin 33.6 Concent Red Cell Distribution Width 15.6 Platelet Count 340 Mean Platelet Volume 7.9 Neutrophils (%) (Auto) 78.1 Lymphocytes (%) (Auto) 15.4 Monocytes (%) (Auto) 6.0 Eosinophils (%) (Auto) 0.1 Basophils (%) (Auto) 0.4 Neutrophils # (Auto) 8.8 Lymphocytes # (Auto) 1.7 Monocytes # (Auto) 0.7 Eosinophils # (Auto) 0.0 Basophils # (Auto) 0.0 CBC Comment DIFF FINAL Differential Comment Sodium Level 137 Potassium Level 4.4 Chloride Level 106 Carbon Dioxide Level 23.7 Anion Gap 7 Blood Urea Nitrogen 11 Creatinine 0.66 Estimat Glomerular Filtration 105 Rate Random Glucose 94 Calcium Level 9.0 Total Bilirubin 0.4 Aspartate Amino Transf 39 (AST/SGOT) Alanine Aminotransferase 19 (ALT/SGPT) Alkaline Phosphatase 62 Total Protein 8.3 Albumin 4.2 Urine Color YELLOW Urine Turbidity CLOUDY Urine pH 6.0 Urine Specific [place] 1.020 Urine Protein 30 Urine Glucose (UA) NEG Urine Ketones NEG Urine Occult Blood LARGE Urine Nitrite NEG Urine Bilirubin NEG Urine Urobilinogen LESS THAN 2.0 Urine Leukocyte Esterase MOD Urine RBC Urine WBC 18 Urine Squamous Epithelial 43 Cells Urine Bacteria MOD Urine Mucus MANY Microscopic Urinalysis Comment CULTURE INDICATED Date/Time Procedure Status Source Growth 02/07/17 00:11 Urine Culture Received Urine Random Urine Pending (Leandra Franklin) Result Diagram: 02/06/17 0456 02/06/17 9820 Assessment and Plan Problem List: (1) Intractable pain (2) Renal colic on right side (3) UTI (urinary tract infection) (4) Polycystic disease, ovaries (5) Facial rash (6) Hx MRSA infection Assessment and Plan Admit to Dr. Lopez 31-year-old female with history of kidney stones, polycystic ovarian syndrome. Presented to the emergency room with recurrent right-sided flank pain, nausea, vomiting,. Complaining also pelvic pressure,or any. Evaluated in the emergency room had CT that showed 2 mm calcified stone near the UVJ in the distal right ureter, without evidence of hydronephrosis. Urinalysis positive for UTI Continue with IV fluids Consul urology for evaluation Keep nothing by mouth Discontinue morphine and start Dilaudid 1 mg IV push every 3 when necessary for pain scale 7-10 Patient indicates she is allergic to Toradol has hives. -We'll have nursing strain urine -continue antibiotics -Continue Flomax Facial and back lesions, prior history of MRSA -Continue with IV antibiotics for now SCDs for DVT prophylaxis Home medications reviewed, initiated as indicated Plan of care discussed with the patient, attending and registered nurse. Further management of the patient will be dependent on the hospital course This patient was seen by myself and Dr. Lopez, this H&P is written on her behalf (Leandra Franklin) Assessment and Plan patient seen and examined agree with above assessment and plan continue i/v fluids, pain control start sips of clears once nausea improves discussed with patient discussed with Leandra TAN (Dayanara Lopez MD) Problem Qualifiers (1) UTI (urinary tract infection): Leandra Franklin Feb 07, 2017 07:26 Dayanara Lopez MD Feb 07, 2017 09:25
[2017-02-07] MEDS: SODIUM CHLORIDE 0.9% FLUSH 10 ML FLUSH IV FLUSH SCH ×2 (08:34→20:56)
[2017-02-07] MEDS: HYDROmorphone HCL PF 1 MG/ML VIAL IV PRN ×5 (08:36→20:57)
--- NOTE | 2017-02-07 10:31 | PD.CONS ---
HPI Service Urology Consult Requested By Reason for Consult Right ureteral calculus Primary Care Physician hCris Garcia MD Diagnosis: History of Present Illness 31 year-old female with history of recurrent nephrolithiasis who is now admitted for acute onset right flank pain radiating to the right lower quadrant. Workup included a CT scan of the abdomen and pelvis that demonstrated a 2 mm right ureterovesical junction calculus without any significant hydroureteronephrosis. Patient admitted for analgesic support and I V hydration. Upon further questioning the patient has had at least 3 prior kidney stones which she has passed on her own. Stones typically take 1-2 days for passage. She reports that she has been dehydrated lately. She reports that her father has a history of kidney stones as well. At the time of consultation the patient was resting comfortably and in no acute distress. Review of Systems Constitutional: DENIES: Fever, Night Sweats Gastrointestinal: COMPLAINS OF: Abdominal pain (right lower quadrant), Nausea, Vomiting Genitourinary: DENIES: Hematuria Musculoskeletal: COMPLAINS OF: Back pain (right flank) Except as stated in HPI: all other systems reviewed are Neg Past Family Social History Past Medical History Recurrent nephrolithiasis Endometriosis Past Surgical History Status post cholecystectomy Status post section Status post hysterectomy Reported Medications Refer to EMR Allergies: Coded Allergies: Amoxicillin (Verified Allergy, Unknown, HIVES, 05/08/15) Haldol (Verified Allergy, Unknown, 02/06/17) Levaquin (Verified Allergy, Unknown, HIVES, 05/08/15) Phenergan (Verified Allergy, Unknown, HIVES, 05/08/15) Reglan (Verified Allergy, Unknown, HIVES, 05/08/15) Robaxin (Verified Allergy, Unknown, HIVES, 05/08/15) Toradol (Verified Allergy, Unknown, 02/06/17) Active Ordered Medications Refer to EMR Family History Father with history nephrolithiasis Coronary artery disease Diabetes mellitus Systemic lupus erythematosus Social History Denies tobacco, alcohol or intravenous drug abuse Physical Exam Vital Signs Date Time Temp Pulse Resp B/P Pulse Ox O2 Delivery O2 Flow Rate FiO2 02/07/17 09:06 16 02/07/17 08:00 96.9 72 20 146/84 98 02/07/17 04:06 70 18 132/79 97 Room Air 02/07/17 03:30 17 02/07/17 01:19 92 16 151/90 97 Room Air 02/07/17 01:19 17 02/07/17 00:47 89 18 151/93 98 Room Air 02/06/17 23:50 17 02/06/17 23:48 18 98 Room Air 02/06/17 21:53 98.1 112 12 166/100 99 Room Air Physical Exam GENERAL: This is a well-nourished, well-developed patient, in no apparent distress. SKIN: No rashes, ecchymoses or lesions. Cool and dry. HEAD: Atraumatic. Normocephalic. No temporal or scalp tenderness. EYES: Pupils equal round and reactive. Extraocular motions intact. No scleral icterus. No injection or drainage. ENT: Nose without bleeding, purulent drainage or septal hematoma. Throat without erythema, tonsillar hypertrophy or exudate. Uvula midline. Airway patent. NECK: Trachea midline. No JVD or lymphadenopathy. Supple, nontender, no meningeal signs. CARDIOVASCULAR: Regular rate and rhythm without murmurs, gallops, or rubs. RESPIRATORY: Clear to auscultation. Breath sounds equal bilaterally. No wheezes , rales, or rhonchi. GASTROINTESTINAL: Abdomen soft, non-tender, nondistended. No hepato-splenomegaly , or palpable masses. No guarding. GENITOURINARY: No CVA tenderness MUSCULOSKELETAL: Extremities without clubbing, cyanosis, or edema. No joint tenderness, effusion, or edema noted. No calf tenderness. Negative Homans sign bilaterally. NEUROLOGICAL: Awake and alert. Cranial nerves II through XII intact. Motor and sensory grossly within normal limits. Five out of 5 muscle strength in all muscle groups. Normal speech. Laboratory Tests Test 02/06/17 02/07/17 23:19 00:11 White Blood Count 11.3 Red Blood Count 4.41 Hemoglobin 12.1 Hematocrit 36.0 Mean Corpuscular Volume 81.6 Mean Corpuscular Hemoglobin 27.4 Mean Corpuscular Hemoglobin 33.6 Concent Red Cell Distribution Width 15.6 Platelet Count 340 Mean Platelet Volume 7.9 Neutrophils (%) (Auto) 78.1 Lymphocytes (%) (Auto) 15.4 Monocytes (%) (Auto) 6.0 Eosinophils (%) (Auto) 0.1 Basophils (%) (Auto) 0.4 Neutrophils # (Auto) 8.8 Lymphocytes # (Auto) 1.7 Monocytes # (Auto) 0.7 Eosinophils # (Auto) 0.0 Basophils # (Auto) 0.0 CBC Comment DIFF FINAL Differential Comment Sodium Level 137 Potassium Level 4.4 Chloride Level 106 Carbon Dioxide Level 23.7 Anion Gap 7 Blood Urea Nitrogen 11 Creatinine 0.66 Estimat Glomerular Filtration 105 Rate Random Glucose 94 Calcium Level 9.0 Total Bilirubin 0.4 Aspartate Amino Transf 39 (AST/SGOT) Alanine Aminotransferase 19 (ALT/SGPT) Alkaline Phosphatase 62 Total Protein 8.3 Albumin 4.2 Urine Color YELLOW Urine Turbidity CLOUDY Urine pH 6.0 Urine Specific [place] 1.020 Urine Protein 30 Urine Glucose (UA) NEG Urine Ketones NEG Urine Occult Blood LARGE Urine Nitrite NEG Urine Bilirubin NEG Urine Urobilinogen LESS THAN 2.0 Urine Leukocyte Esterase MOD Urine RBC Urine WBC 18 Urine Squamous Epithelial 43 Cells Urine Bacteria MOD Urine Mucus MANY Microscopic Urinalysis Comment CULTURE INDICATED Date/Time Procedure Status Source Growth 02/07/17 00:11 Urine Culture Received Urine Random Urine Pending Result Diagram: 02/06/17 2319 02/06/17 2315 Personally reviewed images: Yes Imaging CT scan of the abdomen and pelvis demonstrated a 2 mm right ureterovesical junction calculus without any evidence of hydroureteronephrosis. No renal calculi were seen. Assessment and Plan Assessment and Plan Urologic impression: 2 mm right ureterovesical junction calculus that is likely to spontaneously pass. Recommendations: #1 continue with Flomax and straining of urine until stone retrieved #2 continue with I V hydration and analgesic support #3 discharge home when pain managed with oral meds #4 office follow up next week [phone] Louie Lind MD Feb 07, 2017 10:31
--- NOTE | 2017-02-07 17:35 | HHI.DCPOC ---
Discharge Care Plan Diagnosis: (1) UTI (urinary tract infection) (2) Renal colic on right side (3) Intractable pain (4) Polycystic disease, ovaries (5) Facial rash (6) Hx MRSA infection Your Health Problems Are: Anxiety Appetite Changes Inflammation Goals to Promote Your Health * To prevent worsening of your condition and complications * To maintain your health at the optimal level Directions to Meet Your Goals Take your medications as prescribed Follow your dietary instruction Follow activity as directed Keep your appointments as scheduled Take your immunizations and boosters as scheduled If your symptoms worsen call your PCP, if no PCP go to Urgent Care Center or Emergency Room Smoking is Dangerous to Your Health. Avoid second hand smoke Call the 24-hour hour crisis hotline for domestic abuse at Leandra Franklin [facility] Feb 07, 2017 17:35
[2017-02-07] MEDS: ALPRAZolam 0.25 MG TAB PO PRN ×2 (17:48→23:50)
[2017-02-07] MEDS: TAMSULOSIN HCL 0.4 MG CAP PO SCH (20:56)
[2017-02-07] MEDS: cefTRIAXone INJ 1,000 MG in SODIUM CHLORIDE 0.9% INJ 100 ML IV SCH (22:58)
[2017-02-08] MEDS: HYDROmorphone HCL PF 1 MG/ML VIAL IV PRN ×6 (00:14→23:32)
[2017-02-08 00:50] VITALS: BP 124/81; PULSE 54; RESP 20; TEMP 98.3; O2SAT 97
[2017-02-08 05:44] LABS: BASOPHIL % 0.6 % (0.0-2.0); EOSINOPHIL # 0.1 TH/MM3 (0-0.4); EOSINOPHIL % 1.9 % (0.0-4.0); HEMATOCRIT 33.4 % (35.0-46.0); HEMO FLAGS DIFF FINAL; LYMPH % 36.8 % (9.0-44.0); MEAN CELL VOLUME 81.8 FL (80.0-100.0); MEAN CORPUSCULAR HEMOGLOBIN 27.4 PG (27.0-34.0); MEAN CORPUSCULAR HGB CONC 33.6 % (32.0-36.0); MONO % 7.3 % (0.0-8.0); NEUT % 53.4 % (16.0-70.0); PLATELET COUNT 269 TH/MM3 (150-450); RED BLOOD COUNT 4.08 MIL/MM3 (4.00-5.30); RED CELL DISTRIBUTION WIDTH 15.3 % (11.6-17.2); WHITE BLOOD COUNT 5.5 TH/MM3 (4.0-11.0)
[2017-02-08 06:21] LABS: BICARBONATE 22.9 MEQ/L (21.0-32.0)
[2017-02-08] MEDS: ONDANSETRON HCL 4 MG/2 ML VIAL IVP PRN ×3 (07:38→19:48)
[2017-02-08] MEDS: ALPRAZolam 0.25 MG TAB PO PRN ×3 (07:38→19:38)
--- NOTE | 2017-02-08 07:47 | HHI.PR ---
Subjective Remarks still nausea and vomiting alert resting on lt. side, pain and nausea control sipping clear liquids sparingly afebrile (Sobia Contreras) Objective Objective Results - Vital Signs Date Time Temp Pulse Resp B/P Pulse Ox O2 Delivery O2 Flow Rate FiO2 02/08/17 00:50 98.3 54 20 124/81 97 02/07/17 19:09 98.0 65 20 163/98 100 02/07/17 18:19 18 02/07/17 16:03 97.8 61 18 140/76 100 02/07/17 12:00 96.6 75 20 146/87 99 02/07/17 08:00 96.9 72 20 146/84 98 (Sobia Contreras) Result Diagram: 02/08/1741902/08/17419 ROS General: Weakness, Other (10 point ROS done, positives noted, other systems negative) GI: N/V /POPPED CORN OVEN ATTENDANT: Dysuria (Sobia Contreras) Physical Exam Physical Exam PHYSICAL EXAMINATION GENERAL: This is a well-developed, well-nourished female who appears to be in no mild distress. She is alert and awake HEAD: Normocephalic Facial features appear symmetric. OROPHARYNGEAL: Oropharynx without erythema or edema.,dry NECK: Supple. No nuchal rigidity or lymphadenopathy. Trachea midline without deviation. CARDIAC: Regular rhythm, regular rate, S1 and S2 are heard. LUNGS: Clear to auscultation bilaterally. no wheezes ABDOMEN: Soft, rt. flank pain radiating from back, Bowel sounds are heard in all four quadrants. No rebound. mild guarding. EXTREMITIES: no edema. Pulses equal bilateral. NEUROLOGICAL: Patient mood and affect appropriate, mild anxiety. No focal deficit SKIN:Warm and moist Objective Remarks Im still having nausea and vomiting (Sobia Contreras) A/P Assessment and Plan (1) Intractable pain (2) Renal colic on right side (3) UTI (urinary tract infection) (4) Polycystic disease, ovaries (5) Facial rash (6) Hx MRSA infection UTI, labs reviewed , leukocytosis resolved, antibiotics continue Hypokalemia Continue with IV fluids, Add K+, recheck BMP am urology consult appreciated still having nausea and vomiting Pain and nausea management Facial and back lesions, prior history of MRSA -Continue with IV antibiotics for now SCDs for DVT prophylaxi Further management of the patient will be dependent on the hospital course D/W nurse D/W patient D/W Dr. Lopez, seen on her behalf Discharge Planning home when stable (Sobia Contreras) Assessment and Plan patient seen and examined per nursing staff patient not vomiting , just spitting change to prn phenergan change dilaudid to q6h prn add po percocet prn pain advance diet labs in am discussed with patient discussed with nursing staff discussed with Sobia TAN (Dayanara Lopez MD) Sobia Contreras Feb 08, 2017 07:47 Dayanara Lopez MD Feb 08, 2017 10:57
[2017-02-08] MEDS ORDERED: POTASSIUM CHLORIDE 20 MEQ CONTROLLED RELEASE TAB PO ONE (08:00)
[2017-02-08] MEDS: 1/2 NS + KCL 20 MEQ INJ 1,000 ML IV SCH ×2 (08:05→19:32)
[2017-02-08] MEDS: SODIUM CHLORIDE 0.9% FLUSH 10 ML FLUSH IV FLUSH SCH ×2 (08:13→19:32)
[2017-02-08 09:04] VITALS: BP 142/64; PULSE 52; RESP 18; TEMP 98; O2SAT 96
[2017-02-08] MEDS ORDERED: PROMETHAZINE HCL 25 MG TAB PO PRN (11:00)
[2017-02-08] MEDS ORDERED: oxyCODONE/ACETAMINOPHEN 5 MG/325 MG TAB PO PRN (11:00)
[2017-02-08 11:55] VITALS: BP 130/73; PULSE 63; RESP 18; O2SAT 95
[2017-02-08] MEDS ORDERED: HYDROmorphone HCL PF 1 MG/ML VIAL IV PRN (15:00)
[2017-02-08 18:01] VITALS: BP 155/82; PULSE 54; RESP 18; TEMP 97.6; O2SAT 95
[2017-02-08] MEDS: TAMSULOSIN HCL 0.4 MG CAP PO SCH (19:39)
[2017-02-08 20:24] VITALS: BP 159/85; PULSE 61; RESP 18; TEMP 97.6; O2SAT 100
[2017-02-08] MEDS: diphenhydrAMINE HCL 50 MG/ML VIAL IV PRN (21:04)
[2017-02-08] MEDS: cefTRIAXone INJ 1,000 MG in SODIUM CHLORIDE 0.9% INJ 100 ML IV SCH (23:18)
[2017-02-08 23:54] VITALS: BP 149/78; PULSE 76; RESP 19; TEMP 98; O2SAT 96
[2017-02-09] MEDS: ALPRAZolam 0.25 MG TAB PO PRN ×3 (03:34→17:31)
[2017-02-09] MEDS: HYDROmorphone HCL PF 1 MG/ML VIAL IV PRN ×5 (03:35→20:33)
[2017-02-09] MEDS: 1/2 NS + KCL 20 MEQ INJ 1,000 ML IV SCH ×2 (04:00→09:33)
[2017-02-09 04:35] VITALS: BP 142/88; PULSE 54; RESP 20; TEMP 97.8; O2SAT 96
[2017-02-09 07:04] LABS: POTASSIUM 3.2 MEQ/L (3.5-5.1)
[2017-02-09 07:28] LABS: AUTOMATED NEUTROPHIL # 4.5 TH/MM3 (1.8-7.7); BASOPHIL % 0.5 % (0.0-2.0); EOSINOPHIL # 0.1 TH/MM3 (0-0.4); EOSINOPHIL % 1.4 % (0.0-4.0); HEMATOCRIT 33.6 % (35.0-46.0); HEMO FLAGS DIFF FINAL; LYMPHOCYTE # 1.5 TH/MM3 (1.0-4.8); MEAN CELL VOLUME 81.2 FL (80.0-100.0); MEAN CORPUSCULAR HEMOGLOBIN 27.5 PG (27.0-34.0); MEAN CORPUSCULAR HGB CONC 33.8 % (32.0-36.0); MONO % 5.8 % (0.0-8.0); NEUT % 69.3 % (16.0-70.0); PLATELET COUNT 273 TH/MM3 (150-450); RED BLOOD COUNT 4.14 MIL/MM3 (4.00-5.30); WHITE BLOOD COUNT 6.5 TH/MM3 (4.0-11.0)
[2017-02-09] MEDS: SODIUM CHLORIDE 0.9% FLUSH 10 ML FLUSH IV FLUSH SCH ×2 (08:08→20:34)
[2017-02-09] MEDS: diphenhydrAMINE HCL 50 MG/ML VIAL IV PRN ×3 (08:13→20:34)
--- NOTE | 2017-02-09 08:34 | HHI.PR ---
Subjective Remarks still nausea and vomiting, pills taken seen in emesis alert diarrhea, with blood? pain and nausea control abd/back pain continues afebrile (Sobia Contreras) Objective Objective Results - Vital Signs Date Time Temp Pulse Resp B/P Pulse Ox O2 Delivery O2 Flow Rate FiO2 02/09/17 04:35 97.8 54 20 142/88 96 02/09/17 04:32 18 02/08/17 23:54 98.0 76 19 149/78 96 02/08/17 20:24 97.6 61 18 159/85 100 02/08/17 18:01 97.6 54 18 155/82 95 02/08/17 13:48 20 02/08/17 11:55 63 18 130/73 95 02/08/17 10:51 18 02/08/17 09:04 98.0 52 18 142/64 96 (Sobia Contreras) Result Diagram: 02/09/17 0440 02/09/17 0440 ROS General: Weakness (acute generalized), Other (10 point ROS done positives noted are weakness, nausea vomiting, diarrhea, other systems negative or unremarkable, she is anxious) GI: Diarrhea, N/V Neuro/MS: Other (Clarence) (Sobia Contreras) Physical Exam Physical Exam PHYSICAL EXAMINATION GENERAL: This is a well-developed, well-nourished female Still having pain nausea vomiting and now diarrhea She is alert and awake, HEAD: Normocephalic without any lesion or mass noted. Facial features appear symmetric. OROPHARYNGEAL: Oropharynx without erythema or edema. NECK: Supple. No nuchal rigidity or lymphadenopathy. Trachea midline without deviation. CARDIAC: Regular rhythm, regular rate, S1 and S2 are heard. Murmur none no gallops or rubs. LUNGS: Clear to auscultation bilaterally. ABDOMEN: Soft, no guarding, pain radiates around from the back. Bowel sounds are heard in all four quadrants. No guarding. EXTREMITIES: [] edema. Pulses equal bilateral. [] cyanosis. NEUROLOGICAL: Patient mood and affect appropriate. No focal deficit SKIN:Warm and moist Objective Remarks I still feel really bad (Sobia Contreras) A/P Assessment and Plan (1) Intractable pain (2) Renal colic on right side (3) UTI (urinary tract infection) (4) Polycystic disease, ovaries (5) Facial rash (6) Hx MRSA infection UTI, labs reviewed , leukocytosis resolved, antibiotics continue Hypokalemia, unable to take by mouth meds for now, continue IV Continue with IV fluids, Add K+, urology consult appreciated still having nausea and vomiting , now states diarrhea, patient states with some blood, will do stool sample for occult blood Pain and nausea management Will recheck BMP in the morning We'll continue with Flomax and straining of the urine. Urology feels stone should pass on its own. Facial and back lesions, prior history of MRSA -Continue with IV antibiotics for now SCDs for DVT prophylaxi Further management of the patient will be dependent on the hospital course D/W nurse D/W patient D/W Dr. Lopez, seen on her behalf Discharge Planning home when stable (Sobia Contreras) Assessment and Plan patient seen and examined still c/o pain current dose not holding persistant n/v repeat CT Abd/pelvis increase dilaudid to 1 mg check stool for occult blood labs in am discussed with patient discussed with nursing staff discussed with Sobia TAN (Dayanara Lopez MD) Sobia Contreras Feb 09, 2017 08:34 Dayanara Lopez MD Feb 09, 2017 12:20
[2017-02-09 08:42] VITALS: BP 151/84; PULSE 58; RESP 18; TEMP 97.9; O2SAT 95
[2017-02-09 08:43] VITALS: BP 153/90; PULSE 65; RESP 18; TEMP 96.8; O2SAT 96
[2017-02-09] MEDS: ONDANSETRON HCL 4 MG/2 ML VIAL IVP PRN ×3 (09:28→23:20)
[2017-02-09 11:51] VITALS: BP 164/97; PULSE 63; RESP 18; O2SAT 96
--- NOTE | 2017-02-09 13:47 | HHI.PR ---
Subjective Patient symptoms today Patient continues to have significant right flank pain requiring intravenous Dilaudid. Denies passing the stone as of yet. Objective Vital Signs Vital Signs Date Time Temp Pulse Resp B/P Pulse Ox O2 Delivery O2 Flow Rate FiO2 02/09/17 11:51 63 18 164/97 96 02/09/17 08:43 96.8 65 18 153/90 96 02/09/17 08:42 97.9 58 18 151/84 95 02/09/17 04:35 97.8 54 20 142/88 96 02/09/17 04:32 18 02/08/17 23:54 98.0 76 19 149/78 96 02/08/17 20:24 97.6 61 18 159/85 100 02/08/17 18:01 97.6 54 18 155/82 95 02/08/17 13:48 20 Result Diagram: 02/09/1743902/09/17439 Objective Remarks Abdomen soft, nondistended, nontender No CVA tenderness Extremities well-perfused Medications and IVs Current Medications Medications (Trade) Dose Ordered Sig/Dena Route Start Time Stop Time Status Last Admin (NS Flush) 2 ml UNSCH PRN IV FLUSH 02/07/17 02:15 (NS Flush) 2 ml BID IV FLUSH 02/07/17 09:00 02/09/17 08:08 (Tylenol) 650 mg Q4H PRN PO 02/07/17 02:15 (Zofran Inj) 4 mg Q6H PRN IVP 02/07/17 02:15 02/09/17 09:28 (Senokot) 17.2 mg Q12H PRN PO 02/07/17 02:15 Naloxone HCl 0.4 mg 0.4 mg UNSCH PRN IV 02/07/17 02:15 (Rocephin Inj/NS Inj) 100 ml @ 200 mls/hr Q24H IV 02/07/17 23:00 02/08/17 23:18 (Flomax) 0.4 mg HS PO 02/07/17 21:00 02/08/17 19:39 Alprazolam 0.25 mg 0.25 mg Q6H PRN PO 02/07/17 18:00 02/09/17 10:02 (1/2 NS + KCl 20 Meq Inj) 1,000 ml @ 100 mls/hr Q10H IV 02/08/17 08:00 02/09/17 09:33 (Benadryl Inj) 25 mg QID PRN IV 02/08/17 21:00 02/09/17 08:13 (Dilaudid Pf Inj) 0.8 mg Q4H PRN IV 02/09/17 14:30 Assessment and Plan Assessment and Plan Urologic impression: 2 mm right ureterovesical junction calculus refractory to conservative management Recommendations: #1 continue with Flomax and straining of urine until stone retrieved #2 continue with I V hydration and analgesic support #3 will placed the patient on the OR schedule for tomorrow for cystoscopy, right retrograde pyelogram and right ureteroscopy with stone extraction #4 risks and benefits discussed with patient Louie Lind MD Feb 09, 2017 13:47
--- NOTE | 2017-02-09 14:06 | RADRPT ---
EXAM DATE/TIME: 02/09/2017 13:11 [facility] COMPARISON: CT ABDOMEN & PELVIS W/O CONTRAST, February 06, 2017, 10:36. INDICATIONS : Right abdominal pain radiaitng to left quadrant with rectal bleeding. ORAL CONTRAST: No oral contrast ingested. RADIATION DOSE: 4.76 CTDIvol (mGy) MEDICAL HISTORY : None SURGICAL HISTORY : Hysterectomy. Cholecystectomy. ENCOUNTER: Initial ACUITY: 3 days PAIN SCALE: 5/10 LOCATION: Bilateral abdomen/pelvis TECHNIQUE: Volumetric scanning of the abdomen and pelvis was performed. Using automated exposure control and adjustment of the mA and/or kV according to patient size, radiation dose was kept as low as reasonably achievable to obtain optimal diagnostic quality images. FINDINGS: LOWER LUNGS: The visualized lower lungs are clear. LIVER: Homogeneous density without lesion. There is no dilation of the biliary tree. No calcifi ed gallstones. SPLEEN: Normal size without lesion. PANCREAS: Within normal limits. KIDNEYS: Normal in size and shape. There is no mass, stone, or hydronephrosis. There is mild pro minence of the right ureter. The previously noted distal right ureteral stone is no longer visualized . ADRENAL GLANDS: Within normal limits. VASCULAR: There is no aortic aneurysm. BOWEL/MESENTERY: The stomach, small bowel, and colon demonstrate no acute abnormality. There is no free intraperitoneal air or fluid. The lack of IV or oral contrast limits further evaluation of th e bowel. ABDOMINAL WALL: Within normal limits. RETROPERITONEUM: There is no lymphadenopathy. BLADDER: No wall thickening or mass. REPRODUCTIVE: Within normal limits. INGUINAL: There is no lymphadenopathy or hernia. MUSCULOSKELETAL: Within normal limits for patient age. CONCLUSION: The previously noted distal right ureteral stone is no longer visualized. Given the p atient's clinical indication of rectal bleeding recommend further outpatient evaluation with colonosc opy.. Jacey Leach MD on February 09, 2017 at 14:00 Board Certified Radiologist. This report was verified electronically.
[2017-02-09] MEDS: POTASSIUM CHLOR 20 MEQ PREMIX 100 ML IV SCH ×2 (16:57→19:43)
[2017-02-09 19:39] VITALS: BP 165/94; PULSE 80; RESP 18; TEMP 98.2; O2SAT 93
[2017-02-09] MEDS: TAMSULOSIN HCL 0.4 MG CAP PO SCH (20:34)
[2017-02-09] MEDS ORDERED: AMBI10TA PO (22:25)
[2017-02-09] MEDS: cefTRIAXone INJ 1,000 MG in SODIUM CHLORIDE 0.9% INJ 100 ML IV SCH (23:19)
[2017-02-09] MEDS: ZOLPIDEM TARTRATE 10 MG TAB PO PRN (23:20)
[2017-02-09 23:48] VITALS: BP 156/85; PULSE 70; RESP 20; TEMP 98.3; O2SAT 97
[2017-02-10] MEDS: HYDROmorphone HCL PF 1 MG/ML VIAL IV PRN ×5 (00:40→21:23)
[2017-02-10] MEDS: ALPRAZolam 0.25 MG TAB PO PRN ×3 (00:40→21:22)
[2017-02-10 04:33] VITALS: BP 152/79; PULSE 72; RESP 18; TEMP 97.6; O2SAT 97
[2017-02-10 04:38] LABS: AUTOMATED NEUTROPHIL # 4.7 TH/MM3 (1.8-7.7); BASOPHIL # 0.1 TH/MM3 (0-0.2); BASOPHIL % 0.8 % (0.0-2.0); EOSINOPHIL # 0.1 TH/MM3 (0-0.4); EOSINOPHIL % 1.4 % (0.0-4.0); HEMATOCRIT 33.6 % (35.0-46.0); HEMO FLAGS DIFF FINAL; LYMPH % 31.9 % (9.0-44.0); LYMPHOCYTE # 2.5 TH/MM3 (1.0-4.8); MEAN CELL VOLUME 80.1 FL (80.0-100.0); MEAN CORPUSCULAR HEMOGLOBIN 28.3 PG (27.0-34.0); MEAN CORPUSCULAR HGB CONC 35.3 % (32.0-36.0); MONO % 6.4 % (0.0-8.0); NEUT % 59.5 % (16.0-70.0); PLATELET COUNT 314 TH/MM3 (150-450); RED BLOOD COUNT 4.19 MIL/MM3 (4.00-5.30); RED CELL DISTRIBUTION WIDTH 15.5 % (11.6-17.2); WHITE BLOOD COUNT 7.9 TH/MM3 (4.0-11.0)
[2017-02-10] MEDS: 1/2 NS + KCL 20 MEQ INJ 1,000 ML IV SCH ×4 (04:41→21:21)
[2017-02-10] MEDS: diphenhydrAMINE HCL 50 MG/ML VIAL IV PRN ×2 (04:42→21:23)
[2017-02-10 04:55] LABS: BICARBONATE 23.7 MEQ/L (21.0-32.0); POTASSIUM 3.6 MEQ/L (3.5-5.1)
[2017-02-10 07:53] VITALS: BP 144/68; PULSE 55; RESP 20; TEMP 97.9; O2SAT 96
--- NOTE | 2017-02-10 08:14 | HHI.PR ---
Subjective Remarks still nausea and vomiting rt. flank pain alert diarrhea, with blood noted again, never had before afebrile NPO (Sobia Contreras) Objective Objective Results - Vital Signs Date Time Temp Pulse Resp B/P Pulse Ox O2 Delivery O2 Flow Rate FiO2 02/10/17 07:53 97.9 55 20 144/68 96 02/10/17 05:20 18 02/10/17 04:33 97.6 72 18 152/79 97 02/09/17 23:48 98.3 70 20 156/85 97 02/09/17 19:39 98.2 80 18 165/94 93 02/09/17 11:51 63 18 164/97 96 02/09/17 08:43 96.8 65 18 153/90 96 02/09/17 08:42 97.9 58 18 151/84 95 I/O 02/09/17 02/09/17 02/09/17 02/10/17 02/10/17 02/10/17 07:00 15:00 23:00 07:00 15:00 23:00 Output Total 500 ml 300 ml Balance -500 ml -300 ml Output Urine Total 500 ml 300 ml # Voids 3 (Sobia Contreras) Result Diagram: 02/10/1742302/10/17423 ROS General: Fatigue, Weakness, Other (10 point ROS done, positives noted, other systems unremarkable) GI: Diarrhea (hemoccult positive) /FORESTRY BIOLOGY SPECIALIST: Other (rt. flank pain) (Sobia Contreras) Physical Exam Physical Exam PHYSICAL EXAMINATION GENERAL: This is a well-developed, well-nourished female who appears to be in mild distress She is awake HEAD: Normocephalic without any lesion or mass noted. Facial features appear symmetric. OROPHARYNGEAL: Oropharynx without erythema or edema. NECK: Supple. No nuchal rigidity or lymphadenopathy. Trachea midline without deviation. CARDIAC: Regular rhythm, regular rate, S1 and S2 are heard. Murmur none; no gallops or rubs. LUNGS: Clear to auscultation bilaterally. ABDOMEN: Soft, rt. fland tenderness, no organomegaly or masses. Bowel sounds are heard in all four quadrants. EXTREMITIES: no edema. Pulses equal bilateral. NEUROLOGICAL: Cooperative. No focal deficit SKIN:Warm and moist Objective Remarks I'm still hurting in my right side. I feel the stone is still there somewhere ( Sobia Contreras) A/P Assessment and Plan (1) Intractable pain (2) Renal colic on right side (3) UTI (urinary tract infection) (4) Polycystic disease, ovaries (5) Facial rash (6) Hx MRSA infection UTI, labs reviewed , leukocytosis resolved, antibiotics continue Hypokalemia, resolved, Continue with IV fluids, Add K+, urology consult appreciated, plan is for cystoscopy today. She is now nothing by mouth CT scan done yesterday without visual of the stone anymore but patient's symptoms still persist of sharp right flank pain and nausea and vomiting Pain and nausea management We'll continue with Flomax and straining of the urine. Facial and back lesions, prior history of MRSA -Continue with IV antibiotics for now, medical management SCDs for DVT prophylaxi Further management of the patient will be dependent on the hospital course Diarrhea Hemoccult positive, at some point will need GI follow-up possibly as an outpatient, D/W nurse D/W patient D/W Dr. Lopez, seen on her behalf Discharge Planning home when stable (Sobia Contreras) Assessment and Plan patient seen and examined still complaining of pain plan for cystoscopy today discussed with patient discussed with nursing staff discussed with Sobia TAN (Dayanara Lopez MD) Sobia Contreras Feb 10, 2017 08:14 Dayanara Lopez MD Feb 10, 2017 09:39
[2017-02-10] MEDS: SODIUM CHLORIDE 0.9% FLUSH 10 ML FLUSH IV FLUSH SCH ×2 (08:52→21:00)
[2017-02-10] MEDS: ONDANSETRON HCL 4 MG/2 ML VIAL IVP PRN (09:00)
[2017-02-10 11:46] VITALS: BP 149/86; PULSE 84; RESP 20; TEMP 98; O2SAT 97
[2017-02-10] MEDS ORDERED: PROPOFOL 200 MG/20 ML AMP IV ONE (12:41)
[2017-02-10] MEDS ORDERED: ONDANSETRON HCL 4 MG/2 ML VIAL IV PUSH ONE (12:42)
[2017-02-10] MEDS ORDERED: NORMOSOL R INJ 1,000 ML IV ONE (12:43)
[2017-02-10] MEDS ORDERED: ACETAMINOPHEN 1000 MG/100 ML VIAL IV ONE (13:00)
[2017-02-10] MEDS ORDERED: FAMOTIDINE 20 MG/2 ML VIAL ONE (13:00)
[2017-02-10] MEDS ORDERED: MIDAZOLAM HCL 2 MG/2 ML VIAL ONE (13:00)
[2017-02-10] MEDS ORDERED: DEXAMETHASONE SOD PHOS 4 MG/ML VIAL ONE (13:01)
[2017-02-10] MEDS ORDERED: fentaNYL CITRATE 250 MCG/5 ML AMP ONE (14:22)
[2017-02-10] MEDS ORDERED: IOHEXOL 350 MG/ML 10 ML VIAL (for RAD DIAG) ONE (14:49)
--- NOTE | 2017-02-10 15:27 | PD.OP ---
Operative Report Date of Surgery: Feb 10, 2017 Preoperative Diagnosis: (1) Ureteral calculus, right Postoperative Diagnosis: (1) Renal colic on right side (Passed ureteral calculus) Procedure: Cystoscopy and right retrograde pyelogram Anesthesia: General Surgeon: Louie Lind Receptionist Telephone Operator(s): None Operation and Findings: Indication for procedure: 31-year-old female with right flank pain worked up with CT scan that demonstrated a 2 mm right distal ureteral stone. Symptoms persisted despite conservative management and presents now for further urologic evaluation to include cystoscopy and right retrograde pyelogram. Operative procedure in detail: Patient was brought to the operating room suite and placed supine on the cystoscopy table. She was then placed under general anesthesia. She was then repositioned in the dorsolithotomy position and prepped and draped in normal sterile fashion. After appropriate timeout was undertaken a proceeded with cystoscopic evaluation utilizing the rigid cystoscope with the 20 Wolof sheath and 30 lens. Both right and left ureteral orifices were in correct anatomic position effluxing clear yellow urine. There were no bladder mucosal lesions, calculi or diverticula formation. Next a 6 Wolof open-ended ureteral catheter was utilized and a right retrograde study was performed. There was prompt filling and drainage of the collecting system without evidence of filling defects or obstruction. The bladder was drained. Fluid and cystoscope was withdrawn. The patient tolerated the procedure without complications and transferred to the PACU in satisfactory condition. Louie Lind MD Feb 10, 2017 15:27
[2017-02-10] MEDS ORDERED: *diphenhydrAMINE HCL 50 MG/ML VIAL PERIprocedural Use ONLY ONE (15:50)
[2017-02-10] MEDS ORDERED: *ENALAPRILAT 1.25 MG/ML VIAL PERIprocedural Use ONLY ONE (16:09)
[2017-02-10] MEDS ORDERED: *morphine SULFATE 8 MG/ML PERIprocedure ONLY ONE ×3 (16:10→19:20)
[2017-02-10] MEDS ORDERED: *ONDANSETRON 4 MG VIAL PERIprocedural Use ONLY ONE (19:19)
[2017-02-10 21:10] VITALS: BP 169/90; PULSE 82; RESP 18; TEMP 97.2; O2SAT 96
[2017-02-10] MEDS: TAMSULOSIN HCL 0.4 MG CAP PO SCH (21:22)
[2017-02-10] MEDS: ZOLPIDEM TARTRATE 10 MG TAB PO PRN (21:22)
[2017-02-10 21:44] VITALS: O2SAT 95
[2017-02-10] MEDS: cefTRIAXone INJ 1,000 MG in SODIUM CHLORIDE 0.9% INJ 100 ML IV SCH (22:50)
[2017-02-11] VITALS: BP 153/86; PULSE 98; RESP 18; TEMP 97.9; O2SAT 100
[2017-02-11] MEDS: HYDROmorphone HCL PF 1 MG/ML VIAL IV PRN ×3 (01:14→09:26)
[2017-02-11] MEDS: ONDANSETRON HCL 4 MG/2 ML VIAL IVP PRN (01:14)
[2017-02-11] MEDS: diphenhydrAMINE HCL 50 MG/ML VIAL IV PRN ×2 (03:13→09:20)
[2017-02-11] MEDS: ALPRAZolam 0.25 MG TAB PO PRN ×2 (03:13→09:20)
[2017-02-11 04:00] VITALS: BP 136/79; PULSE 75; RESP 18; TEMP 96.4; O2SAT 98
[2017-02-11 08:00] VITALS: BP 158/80; PULSE 65; RESP 16; TEMP 96.6; O2SAT 96
[2017-02-11] MEDS: SODIUM CHLORIDE 0.9% FLUSH 10 ML FLUSH IV FLUSH SCH (09:00)
--- NOTE | 2017-02-11 11:36 | HHI.PR ---
Subjective Remarks Generalized soreness but nausea and vomiting resolved Patient is tolerating 100% of her food and by mouth liquids Status post cystoscopy, no stone found Afebrile Objective Objective Results - Vital Signs Date Time Temp Pulse Resp B/P Pulse Ox O2 Delivery O2 Flow Rate FiO2 02/11/17 08:00 96.6 65 16 158/80 96 02/11/17 04:00 96.4 75 18 136/79 98 02/11/17 01:44 18 02/11/17 00:00 97.9 98 18 153/86 100 02/10/17 21:44 95 21 02/10/17 21:10 97.2 82 18 169/90 96 02/10/17 20:00 97.6 65 16 138/85 98 Room Air 02/10/17 19:25 15 02/10/17 19:00 66 16 139/86 98 Room Air 02/10/17 18:00 67 16 140/87 97 Room Air 02/10/17 17:53 16 02/10/17 17:00 66 15 141/88 97 Room Air 02/10/17 16:45 64 15 145/89 96 Room Air 02/10/17 16:30 63 15 159/96 95 Room Air 02/10/17 16:15 65 15 168/98 95 Room Air 02/10/17 16:15 15 02/10/17 16:00 69 15 172/105 95 Room Air 02/10/17 15:45 77 16 172/99 98 Nasal Cannula 2 02/10/17 15:40 97.1 80 16 175/115 100 Nasal Cannula 3 02/10/17 11:46 98.0 84 20 149/86 97 I/O 02/10/17 02/10/17 02/10/17 02/11/17 02/11/17 02/11/17 07:00 15:00 23:00 07:00 15:00 23:00 Intake Total 2160 ml 1508 ml Output Total 300 ml 660 ml 400 ml Balance -300 ml 1500 ml 1108 ml Intake Oral 560 ml 480 ml IV Total 300 ml 1028 ml Other 1300 ml Output Urine Total 300 ml 650 ml 400 ml Estimated Blood Loss 10 ml # Voids 1 1 # Bowel Movements 0 0 Result Diagram: 02/10/17 0424 02/10/17 0424 ROS General: Other (mild soreness, ) Physical Exam Physical Exam PHYSICAL EXAMINATION GENERAL: This is a well-developed, well-nourished female who appears to be in no acute distress. She is alert HEAD: Normocephalic without any lesion or mass noted. Facial features appear symmetric. OROPHARYNGEAL: Oropharynx without erythema or edema. NECK: Supple. No nuchal rigidity or lymphadenopathy. Trachea midline without deviation. CARDIAC: Regular rhythm, regular rate, S1 and S2 heard LUNGS: Clear to auscultation bilaterally ABDOMEN: Soft, nontender, no organomegaly or masses. Bowel sounds are heard in all four quadrants. No rebound. No guarding. EXTREMITIES: No edema. Pulses equal bilateral. NEUROLOGICAL: Patient mood and affect appropriate. No focal deficit SKIN:Warm and moist Objective Remarks I'm ready to go home today that I'm still a little sore A/P Assessment and Plan (1) Intractable pain (2) Renal colic on right side (3) UTI (urinary tract infection) (4) Polycystic disease, ovaries (5) Facial rash (6) Hx MRSA infection UTI, stable with her antibiotics Hypokalemia, resolved, IV fluids DC'd, Hypokalemia resolved, K level 3.6 urology consult appreciated, cystoscope done, normal. No stones seen, patient passed at some point in time Pain and nausea management, continues to request medication, although she states she feels much better Hx Facial and back lesions, prior history of MRSA Stable SCDs for DVT prophylaxi Patient assessed and reviewed should be stable for discharge today. D/W nurse D/W patient D/W Dr. Lopez, seen on her behalf Discharge Planning home Sobia Contreras Feb 11, 2017 11:35 Discharge Planning home when stable Sobia Contreras Feb 11, 2017 11:35
[2017-02-11 12:00] VITALS: BP 151/82; PULSE 74; RESP 16; TEMP 97.3; O2SAT 98
[2017-02-11] MEDS ORDERED: ZOFR4TAB3 SL (12:02)
[2017-02-11] MEDS ORDERED: HYDR-3533 PO (12:02)
--- NOTE | 2017-02-11 16:44 | HHI.DS ---
Discharge Summary Admission Date Feb 07, 2017 at 00:33 Discharge Date: Feb 11, 2017 Admitting Diagnosis renal colic, intractable right flank pain (1) Intractable pain Diagnosis: Secondary (2) Renal colic on right side Diagnosis: Principal (3) UTI (urinary tract infection) Diagnosis: Principal (4) Polycystic disease, ovaries Diagnosis: Secondary (5) Facial rash Diagnosis: Secondary (6) Hx MRSA infection Diagnosis: Secondary Procedures cystoscopy Brief History This was a 31-year-old female with history of polycystic ovarian syndrome, kidney stones. Patient presented to the emergency room with right-sided flank pain associated with nausea vomiting. Has not been able to eat anything for the last 2 days. Complaining of pelvic pressure, no dysuria, no hematuria. She had chills but no fevers. She actually presented to the emergency room yesterday morning and had a CT that showed 2 mm calcified stone near the right ureterovesical junction in the distal right ureter, no evidence of hydronephrosis on either side and no collecting system calcifications in either kidney. She also complained of a rash to her face and her back and buttock, states that she has prior history of MRSA infections. She was discharged home on Bactrim, Flomax and narcotics. Patient returned later in the day yesterday as she couldn't keep anything down and her medications were not controlling her pain. Urinalysis was completed, positive for bacteriuria and leukocyte esterase. Patient was given IV fluids, Dilaudid and Rocephin. At this time, patient is crying, indicates the morphine is not helping and is requesting Dilaudid. She endorsed prior history of kidney [place], was supposed to follow-up with the urologist but never did. The last time she had kidney stones was 3 years ago and at that time she was able to pass it. Patient was admitted for further evaluation and treatment. CBC/BMP: 02/10/17 0424 02/10/17 0424 Significant Findings Laboratory Tests Test 02/09/17 02/10/17 04:40 04:24 Hemoglobin 11.4 GM/DL (11.6-15.3) Hematocrit 33.6 % 33.6 % (35.0-46.0) (35.0-46.0) Potassium Level 3.2 MEQ/L (3.5-5.1) Chloride Level 109 MEQ/L 108 MEQ/L (98-107) (98-107) Blood Urea Nitrogen 2 MG/DL (7-18) 2 MG/DL (7-18) Creatinine 0.45 MG/DL 0.49 MG/DL (0.50-1.00) (0.50-1.00) Calcium Level 8.4 MG/DL (8.5-10.1) Imaging Last Impressions Abdomen/Pelvis CT 02/09/17 0000 Signed Impressions: Service Date/Time: Thursday, February 09, 2017 13:11 - CONCLUSION: The previously noted distal right ureteral stone is no longer visualized. Given the patient's clinical indication of rectal bleeding recommend further outpatient evaluation with colonoscopy.. Jacey Leach MD PE at Discharge GENERAL: This was a well-developed, well-nourished female who appears to be in no distress She is awake HEAD: Normocephalic without any lesion or mass noted. Facial features appear symmetric. OROPHARYNGEAL: Oropharynx without erythema or edema. NECK: Supple. No nuchal rigidity or lymphadenopathy. Trachea midline without deviation. CARDIAC: Regular rhythm, regular rate, S1 and S2 are heard. Murmur none; no gallops or rubs. LUNGS: Clear to auscultation bilaterally. ABDOMEN: Soft, rt. fland tenderness, no organomegaly or masses. Bowel sounds are heard in all four quadrants. EXTREMITIES: no edema. Pulses equal bilateral. NEUROLOGICAL: Cooperative. No focal deficit SKIN:Warm and moist (1 Hospital Course These are the diagnoses that were used to treat this patient during this hospital stay. 1) Intractable pain (2) Renal colic on right side (3) UTI (urinary tract infection) (4) Polycystic disease, ovaries (5) Facial rash (6) Hx MRSA infection Vital signs were monitored every 4 hours and documented. Intake and output were maintained to monitor acute nausea and vomiting and to prevent dehydration. UTI was found, labs reviewed , leukocytosis resolved, antibiotics continue throughout hospital stay Hypokalemia, initially noted on admission from her labs patient received potassium in her IV fluids first 48 hours as well as IV bolus supplement . resolved 24 hours before discharge urology consult appreciated, plan is for cystoscopy since patient did not respond to initial treatment plan. Initially patient was nothing by mouth, had nausea vomiting and some diarrhea. Not sure that diarrhea was related to acute renal stone, need follow-up as an outpatient with GI if this continues. CT scan done yesterday without visual of the stone anymore but patient's symptoms still persist of sharp right flank pain and nausea and vomiting. Cystoscope was already set up to be done. Pain and nausea management We'll continue with Flomax and straining of the urine. Cystoscopy was completed. It was no stone found, patient was thought to left past the stone before CT scan done Facial and back lesions, prior history of MRSA -Continue with IV antibiotics for now, medical management She was maintained on contact isolation during this hospital stay due to history of MRSA. History of facial rash, possibly related to febrile illness. Dissipated within 24 hours of admission. SCDs for DVT prophylaxi Further management of the patient will be dependent on the hospital course. Patient received IV pain medicine and IV nausea medicines and by mouth meds to stabilize her during her renal stone discomfort. D/W nurse D/W patient D/W Dr. Lopez, seen on her behalf Pt Condition on Discharge: Stable Discharge Disposition: Discharge Home Discharge Instructions DIET: Follow Instructions for: Heart Healthy Diet Activities you can perform: Regular-No Restrictions Sobia Contreras Feb 11, 2017 16:44
== END 2017-02-11 13:08 | disposition home or self-care (01) ==
LOC: NEPD 21:52 → NEDA 02-07 00:33 → NEPFCDU 02-07 06:59 → N07B 02-10 13:30
PROVIDERS: ADMIT Internal Medicine; ATTEND Internal Medicine
DX: N20.2 Calculus of kidney with calculus of ureter (principal); E28.2 Polycystic ovarian syndrome; Z87.442 Personal history of urinary calculi; R68.83 Chills (without fever); Z86.14 Personal history of Methicillin resistant Staphylococcus aureus infection; R21 Rash and other nonspecific skin eruption; R82.71 Bacteriuria; N80.9 Endometriosis, unspecified; N39.0 Urinary tract infection, site not specified
CPT/HCPCS: 00910; 52005; 74176; 74420; 80048; 80053; 81001; 82272; 85025; 87086; 87641; 96361; 96374; 96375; 99284; C1769; G0378; J0131; J0696; J1100; J1170; J1200; J2250; J2270; J2405; J3010; J3480; J7030; Q9967; 76937

== ENCOUNTER 2017-02-19 13:56 | Emergency (ER) | payer SELFPAY ==
[~2017-02-19] VITALS: Ht 160 cm; Wt 59.0 kg
[~2017-02-19 13:56] MED LIST changes: +AMBI10TA PO; -BACT800T5 PO; -CEPH500 PO; -NAPR500 PO; -TAMS5CAP PO
[2017-02-19 13:58] VITALS: BP 122/79; PULSE 97; RESP 16; TEMP 98.2; O2SAT 96
--- NOTE | 2017-02-19 14:43 | PD ---
Physical Exam Date Seen by Provider: Feb 19, 2017 Time Seen by Provider: 14:40 Narrative Pt is a 31 year old female presenting to the ED for evaluation of skin infection to her chin since last night. Pt reports feeling bad, chilled. Pt has been taking Tylenol and ibuprofen with no relief. No dental pain. Lesion to chin has been draining clear yellow drainage. Hx of MRSA. VSS, awaiting bed placement. Data Data Last Documented VS Vital Signs Date Time Temp Pulse Resp B/P Pulse Ox O2 Delivery O2 Flow Rate FiO2 02/19/17 13:58 98.2 97 16 122/79 96 Room Air MDM Supervised Visit with LEOPOLDO: Katherine Garcia Feb 19, 2017 14:43
--- NOTE | 2017-02-19 15:08 | PD ---
HPI . right chin infection Chief Complaint: Facial Pain or Swelling Time Seen by Provider: 15:08 Travel History International Travel<30 days: No Contact w/Intl Traveler<30days: No Traveled to known affect area: No History of Present Illness HPI 31 year-old female with history of MRSA here with complaints of right chin drainage and lesion that popped up last night. Patient says she does not recall any type of trauma or insect bite. She says all of a sudden she noticed this area on her face that was red and irritated. It also has some clear drainage. She decided to come in for evaluation as she has had MRSA in the past. She denies any fever or chills. Her primary care provider is Dr. Garcia. She has no other complaints. PFSH Past Medical History Asthma: No Blood Disorders: No Heart Rhythm Problems: No Cancer: No Cardiovascular Problems: No High Cholesterol: No Chemotherapy: No Chest Pain: No Congestive Heart Failure: No COPD: No Diabetes: No Endocrine: No Genitourinary: No Musculoskeletal: No Neurologic: No Psychiatric: No Reproductive: No Respiratory: No Immunizations Current: Yes Sleep Apnea: No Past Surgical History Gynecologic Surgery: Yes (HYSTERECTOMY) Hysterectomy: Yes ( 4 YEARS AGO) Social History Alcohol Use: No Tobacco Use: No Substance Use: No Allergies-Medications (Allergen,Severity, Reaction): Coded Allergies: Penicillin (Verified Allergy, Severe, Hives, 02/19/17) Amoxicillin (Verified Allergy, Unknown, HIVES, 02/19/17) Haldol (Verified Allergy, Unknown, 02/19/17) Levaquin (Verified Allergy, Unknown, HIVES, 02/19/17) Phenergan (Verified Allergy, Unknown, HIVES, 02/19/17) Reglan (Verified Allergy, Unknown, HIVES, 02/19/17) Robaxin (Verified Allergy, Unknown, HIVES, 02/19/17) Toradol (Verified Allergy, Unknown, 02/19/17) *MDRO Multi-Drug Resistant Organism (Verified Adverse Reaction, Unknown, MRSA, 02/19/17) MRSA PCR (nares) POSITIVE - 02/10/17 Reported Meds & Prescriptions Reported Meds & Active Scripts Active Bactrim DS (Sulfamethoxazole-Trimethoprim) 800-160 Mg Tab 1 Tab PO BID Reported Ambien (Zolpidem Tartrate) 10 Mg Tab 10 Mg PO HS PRN Review of Systems General / Constitutional: No: Fever Eyes: No: Visual changes HENT: No: Headaches Cardiovascular: No: Chest Pain or Discomfort Respiratory: No: Shortness of Breath Gastrointestinal: No: Abdominal Pain Genitourinary: No: Dysuria Musculoskeletal: No: Pain Skin: Positive Lesions (right side of chin ), No Rash Neurologic: No: Weakness Psychiatric: No: Depression Endocrine: No: Polydipsia Hematologic/Lymphatic: No: Easy Bruising Physical Exam Narrative GENERAL: AAO x 3, no acute distress, Well-nourished, well-developed patient. SKIN: Warm and dry. No visible rashes or bruising. Right side of chin with a small scab and erythema. There is no raised lesion or abscess formation. There seems to be some clear drainage coming from the chin. No evidence of purulence. Both eyes are normal. There is no surrounding edema. HEAD: Normocephalic and atraumatic. EYES: No scleral icterus. No injection or drainage. ENT: No nasal drainage noted. Mucous membranes pink. Airway patent. Poor dentition. NECK: Supple, trachea midline. No JVD. No lymphadenopathy. CARDIOVASCULAR: Regular rate and rhythm without murmurs, gallops, or rubs. RESPIRATORY: Breath sounds equal bilaterally. No accessory muscle use. No rhonchi or rales. GASTROINTESTINAL: Abdomen soft, non-tender, nondistended. EXTREMITIES: No cyanosis or edema. BACK: Nontender without obvious deformity. No CVA tenderness. PSYCH: AAO x 3, normal affect. Data Data Last Documented VS Vital Signs Date Time Temp Pulse Resp B/P Pulse Ox O2 Delivery O2 Flow Rate FiO2 02/19/17 13:58 98.2 97 16 122/79 96 Room Air [facility] Medical Decision Making Medical Screen Exam Complete: Yes Emergency Medical Condition: Yes Medical Record Reviewed: Yes Differential Diagnosis cellulitis, less likely shingles, less likely abscess Narrative Course 31 year-old female with history of MRSA here with complaints of right chin drainage and lesion that popped up last night. Patient says she does not recall any type of trauma or insect bite. She says all of a sudden she noticed this area on her face that was red and irritated. It also has some clear drainage. She decided to come in for evaluation as she has had MRSA in the past. She denies any fever or chills. Her primary care provider is Dr. Garcia. She has no other complaints. Patient seen and examined. She has a superficial area of cellulitis to the right side of the chin. It is localized and does not seem to be extending. She does not have any lymphadenopathy. Nor does she have any periorbital edema. I recommend a course of Bactrim to cover for MRSA, she has had in the past. I recommend daily cleaning with soap and water. She has been advised to return to the emergency department in 48 hours if she cannot get in touch with her primary care provider for recheck. We discussed worsening signs of infection, and she will return if any of these develop. Patient verbalized understanding of instructions, questions were answered, and thanked me for their care. I advised them if their condition worsens, please return to the nearest emergency room for further care. 1522: upon discharge patient asking nurse for pain meds. She also requests some zofran for nausea. I advised OTC meds for pain. Zofran provided. Diagnosis Primary Impression: Cellulitis of chin Patient Instructions: General Instructions Additional Instructions: Please return to emergency department if your symptoms return or worsen. Follow up with your primary care provider. Take medications as prescribed. [place] for worsening signs of infection which include increased fever, redness , increased warmth, purulent drainage, increased swelling or streaking. If any of these develop, please return to the emergency department. Try to see your primary care doctor in the next two days for a recheck. If you are unable to get it, please come back to the emergency department for re -evaluation. Med/Other Pt SpecificInfo: Prescription(s) given Scripts Ondansetron Odt (Zofran Odt)4 Mg Tab4 Mg SL Q8HR PRN (Nausea/Vomiting) #10 TAB Ref 0 Prov:Sonia Lopez DO 02/19/17 Sulfamethoxazole-Trimethoprim (Bactrim DS)800-160 Mg Tab1 Tab PO BID #20 TAB Prov:Sonia Lopez DO 02/19/17 Disposition: 01 DISCHARGE HOME Condition: Stable Dariaan Urena Feb 19, 2017 15:08
[2017-02-19] MEDS ORDERED: BACT800T5 PO (15:10)
[2017-02-19] MEDS ORDERED: ZOFR4TAB3 SL (15:22)
== END 2017-02-19 15:20 | disposition home or self-care (01) ==
LOC: NEPK 13:56
DX: L03.211 Cellulitis of face (principal); Z86.14 Personal history of Methicillin resistant Staphylococcus aureus infection
CPT/HCPCS: 99283

== ENCOUNTER 2017-02-21 21:53 | Emergency (ER) | payer SELFPAY ==
[~2017-02-21] VITALS: Ht 167.6 cm; Wt 60.0 kg
[~2017-02-21 21:53] MED LIST changes: +BACT800T5 PO; -HYDR-3533 PO
[2017-02-21 21:56] VITALS: BP 182/99; PULSE 94; RESP 14; TEMP 99.1; O2SAT 98
[2017-02-22 02:14] VITALS: BP 176/86; PULSE 72; RESP 14; O2SAT 100
[2017-02-22] MEDS ORDERED: CLINDAMYCIN INJ 900 MG in SODIUM CHLORIDE 0.9% INJ 100 ML IV ONE (02:30)
[2017-02-22] MEDS ORDERED: SODIUM CHLOR 0.9% 1000 ML INJ 1,000 ML IV ONE (02:30)
[2017-02-22 03:17] LABS: BICARBONATE 28.1 MEQ/L (21.0-32.0); POTASSIUM 3.7 MEQ/L (3.5-5.1)
[2017-02-22 03:27] LABS: AUTOMATED NEUTROPHIL # 5.5 TH/MM3 (1.8-7.7); BASOPHIL # 0.1 TH/MM3 (0-0.2); BASOPHIL % 1.3 % (0.0-2.0); EOSINOPHIL # 0.2 TH/MM3 (0-0.4); EOSINOPHIL % 1.6 % (0.0-4.0); HEMATOCRIT 36.1 % (35.0-46.0); HEMO FLAGS DIFF FINAL; LYMPH % 36.5 % (9.0-44.0); LYMPHOCYTE # 3.7 TH/MM3 (1.0-4.8); MEAN CELL VOLUME 80.4 FL (80.0-100.0); MEAN CORPUSCULAR HEMOGLOBIN 28.8 PG (27.0-34.0); MEAN CORPUSCULAR HGB CONC 35.8 % (32.0-36.0); MONO % 6.4 % (0.0-8.0); NEUT % 54.2 % (16.0-70.0); PLATELET COUNT 334 TH/MM3 (150-450); RED BLOOD COUNT 4.49 MIL/MM3 (4.00-5.30); RED CELL DISTRIBUTION WIDTH 15.2 % (11.6-17.2); WHITE BLOOD COUNT 10.2 TH/MM3 (4.0-11.0)
--- NOTE | 2017-02-22 04:01 | PD ---
HPI Chief Complaint: Skin Problem Time Seen by Provider: 02:11 Travel History International Travel<30 days: No Contact w/Intl Traveler<30days: No Traveled to known affect area: No History of Present Illness HPI 31 yo F has a right tomas cellulitis. She was seen here for the same thing a few days ago. She was given Bactrim however it has not helped. She reports some pain in the region of the right jaw. The pain is worse with palpation. She states the pain severe. A subjective fever is reported. She has history of MRSA cellulitis. She also reports some erythema on her left leg and on her right buttocks. PFSH Past Medical History Asthma: No Blood Disorders: No Heart Rhythm Problems: No Cancer: No Cardiovascular Problems: No High Cholesterol: No Chemotherapy: No Chest Pain: No Congestive Heart Failure: No COPD: No Diabetes: No Endocrine: No Genitourinary: No Musculoskeletal: No Neurologic: No Psychiatric: No Reproductive: No Respiratory: No Immunizations Current: Yes Sleep Apnea: No Tetanus Vaccination: Unknown Influenza Vaccination: No ?: Not Past Surgical History Gynecologic Surgery: Yes (HYSTERECTOMY) Hysterectomy: Yes ( 4 YEARS AGO) Other Surgery: Yes (hysterectomy) Social History Alcohol Use: No Tobacco Use: No Substance Use: No Allergies-Medications (Allergen,Severity, Reaction): Coded Allergies: Penicillin (Verified Allergy, Severe, Hives, 02/21/17) Amoxicillin (Verified Allergy, Unknown, HIVES, 02/21/17) Haldol (Verified Allergy, Unknown, 02/21/17) Levaquin (Verified Allergy, Unknown, HIVES, 02/21/17) Phenergan (Verified Allergy, Unknown, HIVES, 02/21/17) Reglan (Verified Allergy, Unknown, HIVES, 02/21/17) Robaxin (Verified Allergy, Unknown, HIVES, 02/21/17) Toradol (Verified Allergy, Unknown, 02/21/17) *MDRO Multi-Drug Resistant Organism (Verified Adverse Reaction, Unknown, MRSA, 02/21/17) MRSA PCR (nares) POSITIVE - 02/10/17 Reported Meds & Prescriptions Reported Meds & Active Scripts Active Cleocin (Clindamycin HCl) 150 Mg Cap 450 Mg PO Q8HR 14 Days Zofran Odt (Ondansetron Odt) 4 Mg Tab 4 Mg SL Q8HR PRN Bactrim DS (Sulfamethoxazole-Trimethoprim) 800-160 Mg Tab 1 Tab PO BID Reported Ambien (Zolpidem Tartrate) 10 Mg Tab 10 Mg PO HS PRN Review of Systems Except as stated in HPI: all other systems reviewed are Neg Physical Exam Narrative GENERAL: 31 yo F, WNWD, NAD, speaking full sentences SKIN: Warm and dry. Approx 3 cm diameter R chin erythema with some drainage. 3 mm erythematous lesions about the R buttocks. L thigh 3 mm lesion 1. HEAD: Atraumatic. Normocephalic. EYES: Pupils equal and round. No scleral icterus. No injection or drainage. ENT: No nasal bleeding or discharge. Mucous membranes pink and moist. NECK: Trachea midline. No JVD. CARDIOVASCULAR: Regular rate and rhythm. RESPIRATORY: No accessory muscle use. Clear to auscultation. Breath sounds equal bilaterally. GASTROINTESTINAL: Abdomen soft, non-tender, nondistended. Hepatic and splenic margins not palpable. MUSCULOSKELETAL: Extremities without clubbing, cyanosis, or edema. No obvious deformities. NEUROLOGICAL: Awake and alert. No obvious cranial nerve deficits. Motor grossly within normal limits. Five out of 5 muscle strength in the arms and legs. Normal speech. PSYCHIATRIC: Appropriate mood and affect; insight and judgment normal. Data Data Last Documented VS Vital Signs Date Time Temp Pulse Resp B/P Pulse Ox O2 Delivery O2 Flow Rate FiO2 02/22/17 02:14 72 14 176/86 100 Room Air 02/21/17 21:56 99.1 VS reviewed Orders Basic Metabolic Panel (Bmp) (02/22/17 02:24) Complete Blood Count With Diff (02/22/17 02:24) Wound Culture And Gram Stain (02/22/17 02:24) Iv Access Insert/Monitor (02/22/17 02:24) Sodium Chlor 0.9% 1000 Ml Inj (Ns 1000 M (02/22/17 02:30) Clindamycin Inj (Cleocin Inj) (02/22/17 02:30) Acetamin-Hydrocod 325-5 Mg ([place] 5-325 (02/22/17 04:15) Labs Laboratory Tests Test 02/22/17 02/22/17 02:45 03:20 Sodium Level 139 MEQ/L Potassium Level 3.7 MEQ/L Chloride Level 102 MEQ/L Carbon Dioxide Level 28.1 MEQ/L Anion Gap 9 MEQ/L Blood Urea Nitrogen 6 MG/DL Creatinine 0.73 MG/DL Estimat Glomerular Filtration 94 ML/MIN Rate Random Glucose 87 MG/DL Calcium Level 9.4 MG/DL White Blood Count 10.2 TH/MM3 Red Blood Count 4.49 MIL/MM3 Hemoglobin 12.9 GM/DL Hematocrit 36.1 % Mean Corpuscular Volume 80.4 FL Mean Corpuscular Hemoglobin 28.8 PG Mean Corpuscular Hemoglobin 35.8 % Concent Red Cell Distribution Width 15.2 % Platelet Count 334 TH/MM3 Mean Platelet Volume 8.6 FL Neutrophils (%) (Auto) 54.2 % Lymphocytes (%) (Auto) 36.5 % Monocytes (%) (Auto) 6.4 % Eosinophils (%) (Auto) 1.6 % Basophils (%) (Auto) 1.3 % Neutrophils # (Auto) 5.5 TH/MM3 Lymphocytes # (Auto) 3.7 TH/MM3 Monocytes # (Auto) 0.7 TH/MM3 Eosinophils # (Auto) 0.2 TH/MM3 Basophils # (Auto) 0.1 TH/MM3 CBC Comment DIFF FINAL Differential Comment MDM Medical Decision Making Medical Screen Exam Complete: Yes Emergency Medical Condition: Yes Medical Record Reviewed: Yes Differential Diagnosis Cellulitis, abscess, sepsis Narrative Course The right tomas cellulitis is fairly unimpressive overall. Diameter is perhaps 3 or 4 cm in greatest area. It is slightly raised. There is no fluctuance. We 'll try clindamycin 450 mg thrice daily. 900 mg IV given here. Return precautions discussed. The patient has a follow-up appointment with her primary care doctor on Friday in about 5 days. If clindamycin doesn't work the patient may have to come back for vancomycin. Wound culture was sent here today. Diagnosis Primary Impression: Cellulitis of chin Referrals: DR STONE On Tuesday 02/27 at 830AM Additional Instructions: You have a choice when it comes to health care, and we are glad that you chose [facility]. Hopefully, we have met your expectations on today's visit. You are welcome to return to [facility] at any time, as we are committed to meeting the health care needs of our community. Med/Other Pt SpecificInfo: Prescription(s) given Scripts Clindamycin (Cleocin)150 Mg Adj384 Mg PO Q8HR 14 Days Ref 0 Prov:Mika Urbano MD 02/22/17 Disposition: 01 DISCHARGE HOME Condition: Stable Mika Urbano MD Feb 22, 2017 04:01
[2017-02-22] MEDS ORDERED: CLIN150 PO (04:08)
[2017-02-22] MEDS ORDERED: ACETAMINOPHEN/HYDROcodone 325 MG/5 MG TAB PO ONE (04:15)
[2017-02-22 04:49] VITALS: BP 129/74; PULSE 80; RESP 16; O2SAT 100
== END 2017-02-22 04:49 | disposition home or self-care (01) ==
LOC: NEPE 21:53
DX: L03.211 Cellulitis of face (principal); B95.62 Methicillin resistant Staphylococcus aureus infection as the cause of diseases classified elsewhere
CPT/HCPCS: 80048; 85025; 86403; 87070; 87186; 96374; 99283; J7030

== ENCOUNTER 2017-02-27 20:05 | Emergency (ER) | payer SELFPAY ==
[~2017-02-27] VITALS: Ht 167.6 cm; Wt 60.0 kg
[~2017-02-27 20:05] MED LIST changes: +CLIN150 PO
[2017-02-27 20:09] VITALS: BP 145/86; PULSE 115; RESP 16; TEMP 98.6; O2SAT 97
--- NOTE | 2017-02-28 01:32 | PD ---
HPI Chief Complaint: Edema Time Seen by Provider: 01:31 Travel History International Travel<30 days: No Contact w/Intl Traveler<30days: No Traveled to known affect area: No History of Present Illness HPI 31-year-old female came to the emergency room with history of multiple scabs and small abscesses on her face as well as right thigh. Patient was seen in the emergency room couple days ago and the wound was cultured. It has grown MRSA. Patient is on antibiotic and has been taking it she says like she supposed to. However she is still in pain. She was tachycardic when she arrived in the emergency room. She is awake and answering questions appropriately however. No fever in the triage. PFSH Past Medical History Narrative Medical List of her past medical, surgical, social and family history is reviewed from the nursing note. Asthma: No Blood Disorders: No Heart Rhythm Problems: No Cancer: No Cardiovascular Problems: No High Cholesterol: No Chemotherapy: No Chest Pain: No Congestive Heart Failure: No COPD: No Diabetes: No Endocrine: No Genitourinary: No Musculoskeletal: No Neurologic: No Psychiatric: No Reproductive: No Respiratory: No Immunizations Current: Yes Sleep Apnea: No ?: Not Past Surgical History Gynecologic Surgery: Yes (HYSTERECTOMY) Hysterectomy: Yes ( 4 YEARS AGO) Other Surgery: Yes (hysterectomy) Social History Alcohol Use: No Tobacco Use: No Substance Use: No Allergies-Medications (Allergen,Severity, Reaction): Coded Allergies: Penicillin (Verified Allergy, Severe, Hives, 02/28/17) Amoxicillin (Verified Allergy, Unknown, HIVES, 02/28/17) Haldol (Verified Allergy, Unknown, 02/28/17) Levaquin (Verified Allergy, Unknown, HIVES, 02/28/17) Phenergan (Verified Allergy, Unknown, HIVES, 02/28/17) Reglan (Verified Allergy, Unknown, HIVES, 02/28/17) Robaxin (Verified Allergy, Unknown, HIVES, 02/28/17) Toradol (Verified Allergy, Unknown, 02/28/17) *MDRO Multi-Drug Resistant Organism (Verified Adverse Reaction, Unknown, MRSA, 02/28/17) MRSA PCR (nares) POSITIVE - 02/10/17 MRSA (chin)-02/22/17 Comments List of her allergies reviewed from the nursing note. Reported Meds & Prescriptions Reported Meds & Active Scripts Active Cleocin (Clindamycin HCl) 150 Mg Cap 450 Mg PO Q8HR 14 Days Zofran Odt (Ondansetron Odt) 4 Mg Tab 4 Mg SL Q8HR PRN Reported Ambien (Zolpidem Tartrate) 10 Mg Tab 10 Mg PO HS PRN Narrative Medication List of her home medications reviewed from the nursing note. Review of Systems Except as stated in HPI: all other systems reviewed are Neg Physical Exam Narrative GENERAL: Awake, alert, anxious SKIN: Focused skin assessment warm/dry. Scab over the right tomas area, small abscesses on the right anterior thigh HEAD: Atraumatic. Normocephalic. EYES: Pupils equal and round. No scleral icterus. No injection or drainage. ENT: No nasal bleeding or discharge. Mucous membranes pink and moist. NECK: Trachea midline. No JVD. CARDIOVASCULAR: Regular rate and rhythm. No murmur appreciated. RESPIRATORY: No accessory muscle use. Clear to auscultation. Breath sounds equal bilaterally. GASTROINTESTINAL: Abdomen soft, non-tender, nondistended. Hepatic and splenic margins not palpable. MUSCULOSKELETAL: No obvious deformities. No clubbing. No cyanosis. No edema. NEUROLOGICAL: Awake and alert. No obvious cranial nerve deficits. Motor grossly within normal limits. Normal speech. PSYCHIATRIC: Appropriate mood and affect; insight and judgment normal. Data Data Last Documented VS Vital Signs Date Time Temp Pulse Resp B/P Pulse Ox O2 Delivery O2 Flow Rate FiO2 02/28/17 07:02 18 02/28/17 06:03 98 Room Air 02/28/17 03:06 88 140/80 02/27/17 20:09 98.6 Orders Complete Blood Count With Diff (02/28/17 01:50) Comprehensive Metabolic Panel (02/28/17 01:50) Lactic Acid Sepsis Protocol (02/28/17 01:50) Blood Culture (02/28/17 01:50) Blood Glucose (02/28/17 01:50) Ecg Monitoring (02/28/17 01:50) Iv Access Insert/Monitor (02/28/17 01:50) Oximetry (02/28/17 01:50) Oxygen Administration (02/28/17 01:50) Vancomycin Inj (Vancomycin Inj) (02/28/17 02:00) Ondansetron Inj (Zofran Inj) (02/28/17 02:00) Acetamin-Hydrocod 325-5 Mg ([place] 5-325 (02/28/17 02:15) Ondansetron Inj (Zofran Inj) (02/28/17 02:15) Diphenhydramine Inj (Benadryl Inj) (02/28/17 02:30) Potassium Chlor 20 Meq Premix (Kcl 20 Me (02/28/17 03:30) Potassium Chloride (Kcl) (02/28/17 03:30) Acetamin-Hydrocod 325-5 Mg ([place] 5-325 (02/28/17 04:15) Labs Laboratory Tests Test 02/28/17 02:06 White Blood Count 6.4 TH/MM3 Red Blood Count 4.39 MIL/MM3 Hemoglobin 12.3 GM/DL Hematocrit 35.5 % Mean Corpuscular Volume 80.9 FL Mean Corpuscular Hemoglobin 28.0 PG Mean Corpuscular Hemoglobin 34.6 % Concent Red Cell Distribution Width 15.2 % Platelet Count 325 TH/MM3 Mean Platelet Volume 8.2 FL Neutrophils (%) (Auto) 70.4 % Lymphocytes (%) (Auto) 23.0 % Monocytes (%) (Auto) 5.3 % Eosinophils (%) (Auto) 0.5 % Basophils (%) (Auto) 0.8 % Neutrophils # (Auto) 4.5 TH/MM3 Lymphocytes # (Auto) 1.5 TH/MM3 Monocytes # (Auto) 0.3 TH/MM3 Eosinophils # (Auto) 0.0 TH/MM3 Basophils # (Auto) 0.1 TH/MM3 CBC Comment DIFF FINAL Differential Comment Sodium Level 141 MEQ/L Potassium Level 2.9 MEQ/L Chloride Level 108 MEQ/L Carbon Dioxide Level 22.7 MEQ/L Anion Gap 10 MEQ/L Blood Urea Nitrogen 5 MG/DL Creatinine 0.64 MG/DL Estimat Glomerular Filtration 109 ML/MIN Rate Random Glucose 104 MG/DL Lactic Acid Level 1.0 mmol/L Calcium Level 9.4 MG/DL Total Bilirubin 0.4 MG/DL Aspartate Amino Transf 16 U/L (AST/SGOT) Alanine Aminotransferase 18 U/L (ALT/SGPT) Alkaline Phosphatase 62 U/L Total Protein 8.0 GM/DL Albumin 4.4 GM/DL [facility] Medical Decision Making Medical Screen Exam Complete: Yes Emergency Medical Condition: Yes Medical Record Reviewed: Yes Differential Diagnosis MRSA infection Narrative Course 4:17 AM blood test results of back and within normal limits. Except for her potassium which is low. I'm giving her replacement treatment. After that patient will be discharged home. She was given by mouth pain medication. Procedures EKG Prior to Arrival: No Diagnosis Primary Impression: Staphylococcal infection of skin Additional Impressions: Hx MRSA infection Hypokalemia Referrals: Primary Care Physician 3 days Additional Instructions: Please continue taking antibiotic as per the prescription direction and finish the course. Follow-up with your primary care. Med/Other Pt SpecificInfo: No Change to Meds Disposition: 01 DISCHARGE HOME Condition: Stable Nilay Malik MD Feb 28, 2017 01:32
[2017-02-28] MEDS ORDERED: ONDANSETRON HCL 4 MG/2 ML VIAL IV PUSH ONE ×2 (02:00→02:15)
[2017-02-28] MEDS ORDERED: VANCOMYCIN INJ 1,000 MG in SODIUM CHLOR 0.9% 250 ML INJ 250 ML IV ONE (02:00)
[2017-02-28] MEDS ORDERED: ACETAMINOPHEN/HYDROcodone 325 MG/5 MG TAB PO ONE ×2 (02:15→04:15)
[2017-02-28 02:25] LABS: AUTOMATED NEUTROPHIL # 4.5 TH/MM3 (1.8-7.7); BASOPHIL # 0.1 TH/MM3 (0-0.2); BASOPHIL % 0.8 % (0.0-2.0); EOSINOPHIL % 0.5 % (0.0-4.0); HEMATOCRIT 35.5 % (35.0-46.0); HEMO FLAGS DIFF FINAL; LYMPHOCYTE # 1.5 TH/MM3 (1.0-4.8); MEAN CELL VOLUME 80.9 FL (80.0-100.0); MEAN CORPUSCULAR HGB CONC 34.6 % (32.0-36.0); MONO % 5.3 % (0.0-8.0); NEUT % 70.4 % (16.0-70.0); PLATELET COUNT 325 TH/MM3 (150-450); RED BLOOD COUNT 4.39 MIL/MM3 (4.00-5.30); RED CELL DISTRIBUTION WIDTH 15.2 % (11.6-17.2); WHITE BLOOD COUNT 6.4 TH/MM3 (4.0-11.0)
[2017-02-28] MEDS ORDERED: diphenhydrAMINE HCL 50 MG/ML VIAL IV PUSH ONE (02:30)
[2017-02-28 02:44] LABS: ALT (GPT) 18 U/L (10-53); ANION GAP 10 MEQ/L (5-15); AST (GOT) 16 U/L (15-37); BICARBONATE 22.7 MEQ/L (21.0-32.0); BLOOD UREA NITROGEN 5 MG/DL (7-18); CHLORIDE 108 MEQ/L (98-107); GLOMERULAR FILTRATION RATE 109 ML/MIN (>89); SODIUM (NA) 141 MEQ/L (136-145)
[2017-02-28 02:49] LABS: ALKALINE PHOSPHATASE 62 U/L (45-117); TOTAL BILIRUBIN ADULT 0.4 MG/DL (0.2-1.0)
[2017-02-28 02:50] LABS: POTASSIUM 2.9 MEQ/L (3.5-5.1)
[2017-02-28 03:06] VITALS: BP 140/80; PULSE 88; RESP 18; O2SAT 98
[2017-02-28] MEDS ORDERED: POTASSIUM CHLORIDE 20 MEQ CONTROLLED RELEASE TAB PO ONE (03:30)
[2017-02-28] MEDS ORDERED: POTASSIUM CHLOR 20 MEQ PREMIX 100 ML IV ONE (03:30)
[2017-02-28 06:03] VITALS: O2SAT 98
[2017-02-28 07:02] VITALS: RESP 18
== END 2017-02-28 06:09 | disposition home or self-care (01) ==
LOC: NEPC 20:05
DX: L08.9 Local infection of the skin and subcutaneous tissue, unspecified (principal); B95.8 Unspecified staphylococcus as the cause of diseases classified elsewhere; E87.6 Hypokalemia
CPT/HCPCS: 80053; 83605; 85025; 87040; 96365; 96366; 96367; 96375; 99284; J1200; J2405; J3370; J3480; J7050